=== PATIENT | female | born 1940 | race Caucasian/White ===

== ENCOUNTER 2016-05-23 06:58 | Emergency (ER) | payer MEDICARE, BC ==
[~2016-05-23] VITALS: Ht 165.1 cm; Wt 81.9 kg
[~2016-05-23 06:58] MED LIST: ACET325 PO; CALTTAB10 PO; DILA100C PO; EXCETAB2 PO; LOPR50TA12 PO; LORA-392 PO; METO10TA PO; OCUVTAB4 PO; OXYC5 PO; PHEN100 PO; PHEN60TA PO; SIMV40 PO; WARF5TAB PO
[2016-05-23 07:12] VITALS: BP 111/57; PULSE 83; RESP 16; TEMP 98; O2SAT 97
[2016-05-23] MEDS ORDERED: BETH25TA2 PO (07:41)
[2016-05-23] MEDS ORDERED: PRESCAP6 PO (07:41)
[2016-05-23] MEDS ORDERED: CALCTAB70 PO (07:41)
[2016-05-23] MEDS ORDERED: EXCETAB2 PO (07:41)
[2016-05-23] MEDS ORDERED: LORA-373 PO (07:41)
[2016-05-23] MEDS ORDERED: DILA100C PO (07:41)
[2016-05-23] MEDS ORDERED: WARF-23 PO (07:41)
[2016-05-23] MEDS ORDERED: WARF-18 PO (07:41)
[2016-05-23] MEDS ORDERED: HYDR-3535 PO (07:41)
[2016-05-23] MEDS ORDERED: POTA1TAB4 PO (07:41)
[2016-05-23] MEDS ORDERED: METO-309 PO (07:41)
[2016-05-23] MEDS ORDERED: FURO1TAB60 PO (07:41)
[2016-05-23] MEDS ORDERED: CIPR500T2 PO (07:41)
[2016-05-23] MEDS ORDERED: PHENO60 PO (07:41)
[2016-05-23] MEDS ORDERED: ZOCO40TA PO (07:41)
[2016-05-23] MEDS ORDERED: PANT40TA3 PO (07:42)
--- NOTE | 2016-05-23 08:07 | PD ---
HPI . Left lower leg bruising and swelling and pain Chief Complaint: Musculoskeletal Complaint Time Seen by Provider: 08:00 Travel History International Travel<30 days: No Contact w/Intl Traveler<30days: No Traveled to known affect area: No History of Present Illness HPI Patient presents with a 2 day history of atraumatic left lower leg bruising, swelling and pain. The bruising has become progressively worse as has the pain. She has treated it with ice and Tylenol with no real relief. Pain is exacerbated by walking. Patient reports that she is on warfarin. Patient also reports that she is a newly diagnosed diabetic and has been instructed to check her sugar from time to time. She states that she tried to check it a couple days ago but was unable to get enough blood on the strip to check her glucose level. She is requesting that we check that here today. [id number]: Left calf QUALITY: Aching SEVERITY: 6 out of 10 DURATION: 2 days CONTEXT: Atraumatic MODIFYING FACTORS: On warfarin PFSH Past Medical History Hx Anticoagulant Therapy: Yes (coumadin) Arthritis: Yes Asthma: No Atrial Fibrillation: Yes Autoimmune Disease: No Blood Disorders: No Anxiety: Yes Depression: No Heart Rhythm Problems: Yes (A-FIB) Cancer: No Cardiac Catheterization: No Cardiovascular Problems: Yes (htn on meds, hx of a-fib) High Cholesterol: Yes Chemotherapy: No Chest Pain: No Congestive Heart Failure: Yes COPD: No Cerebrovascular Accident: No Diabetes: Yes (type 2- diet control) Patient Takes Glucophage: No Diminished Hearing: No Deep Vein Thrombosis: No Endocrine: Yes Gastrointestinal Disorders: Yes (RECTAL PROLAPSE REPAIR) GERD: No Glaucoma: No Genitourinary: Yes (CHRONIC UTI'S) Headaches: Yes Hepatitis: No Hiatal Hernia: No Heparin Induced Thrombocytopen: No Hypertension: Yes Immune Disorder: No Implanted Vascular Access Dvce: Yes Kidney Stones: Yes Musculoskeletal: Yes (ARTHRITIS, CHR. BACK PAIN ; OSTEOPORSIS) Neurologic: Yes (CHRONIC RT FOOT NEUROPATHY, MIGRANES, HX SEIZURES) Psychiatric: No Reproductive: No Respiratory: No Migraines: Yes Myocardial Infarction: No Radiation Therapy: No Renal Failure: No Seizures: Yes (started in teenage years last seizure was in 1965) Sickle Cell Disease: No Sleep Apnea: No Thyroid Disease: Yes (PARTIAL THYROID REMOVED FOR CYSTS IN 1953) Ulcer: No Tetanus Vaccination: Unknown Influenza Vaccination: Yes ?: Not Menopausal: Yes : 5 Para: 3 Miscarriage: 2 : 0 Past Surgical History Abdominal Aneurysm Repair: No Abdominal Surgery: No AICD: No Appendectomy: No Arteriovenous Shunt: No Body Medical Devices: PLATE LEFT WRIST; HEART VALVE RING Cardiac Surgery: Yes (MITRAL VALVE REPAIR 2003) Cholecystectomy: No Coronary Artery Bypass Graft: No Ear Surgery: No Endocrine Surgery: Yes (PARTIAL THYROIDECTOMY 1957) Eye Surgery: No Genitourinary Surgery: Yes (BLADDER SUSP. 2011) Gynecologic Surgery: Yes (HYSTERECTOMY ) Hysterectomy: Yes Insulin Pump: No Joint Replacement: Yes (right knee) Neurologic Surgery: No Oral Surgery: Yes (TONSILLECTOMY 1945 ; 07/28 BRONCHOSCOPY) Pacemaker: No Thoracic Surgery: No Tonsillectomy: Yes (1945) Valve Replacement: Yes (2003- MITRAL VALVE) Other Surgery: Yes (BILAT BUNION REMOVAL IN 1996) Family History Family Myocardial Infarction: Yes Social History Alcohol Use: No Tobacco Use: No Substance Use: No Allergies-Medications (Allergen,Severity, Reaction): Coded Allergies: Demerol (Verified Allergy, Severe, NAUSEA AND DIZZY, 05/23/16) INTERMEDIATE REACTION Iodine (Verified Allergy, Severe, HIVES, 05/23/16) HIVES AFTER CARDIAC CATH AND EATING SHRIMP; NAUSEA Percocet (Verified Allergy, Severe, Hallucinations, 05/23/16) Seafood (Unverified Allergy, Intermediate, HIVES; SLEEPY; NAUSEA, 05/23/16) Lyrica (Verified Adverse Reaction, Severe, SEVERE PANIC ATTACK, 05/23/16) Reported Meds & Prescriptions Reported Meds & Active Scripts Active Reported Pantoprazole (Pantoprazole Sodium) 40 Mg Tab 40 Mg PO DAILY K-Tab (Potassium Chloride) 20 Meq Tab 20 Meq PO DAILY PRN Lasix (Furosemide) 40 Mg Tab 40 Mg PO DAILY PRN Bethanechol 25 Mg Tab 12.2 Mg PO QID Lortab (Hydrocodone-Acetaminophen) 10-325 Mg Tab 1 Tab PO Q6H PRN Excedrin Extra Strength (Rdinjwi-Ndmzwphjjjacf-Fljdkpwp) 250-250-65 Mg Tab 2 Tab PO BID PRN Ciprofloxacin (Ciprofloxacin HCl) 500 Mg Tab 500 Mg PO BID PRN Lorazepam 0.5 Mg Tab 0.5 Mg PO DAILY PRN Calcium 600 + D (Calcium Carbonate-Vitamin D) 600-400 Mg-Unit Tab 1 Tab PO BID Preservision-Lutein (Multiple Vitamins W/ Minerals) 1 Cap 1 Cap PO BID Zocor (Simvastatin) 40 Mg Tab 40 Mg PO HS Warfarin 2.5 Mg Tab 2.5 Mg PO Warfarin 5 Mg Tab 5 Mg PO DIRECTED Lopressor (Metoprolol Tartrate) 50 Mg Tab 25 Mg PO BID Phenobarbital 64.8 Mg Tab 64.8 Mg PO BID Dilantin (Phenytoin Extended) 100 Mg Cap 100 Mg PO BID Review of Systems Except as stated in HPI: all other systems reviewed are Neg General / Constitutional: No: Fever, Chills Cardiovascular: No: Chest Pain or Discomfort Respiratory: No: Shortness of Breath Gastrointestinal: No: Nausea, Vomiting Musculoskeletal: Positive: Myalgias, Arthralgias (left knee) Skin: Positive Change in Pigmentation Physical Exam Narrative GENERAL: Older woman who is awake and alert and in no acute distress. SKIN: Warm and dry. She has bruising to the left calf. It is locally tender. HEAD: Atraumatic. Normocephalic. EYES: Pupils equal and round. ENT: No nasal bleeding or discharge. Mucous membranes pink and moist. NECK: Trachea midline. Neck is supple. CARDIOVASCULAR: Regular rate and rhythm. RESPIRATORY: No accessory muscle use. GASTROINTESTINAL: Abdomen soft, non-tender, nondistended. MUSCULOSKELETAL: No obvious deformities. No edema. Tender in the left calf. She also has crepitus and tenderness in the left knee but no swelling or deformity. NEUROLOGICAL: Awake and alert. No obvious cranial nerve deficits. Motor grossly within normal limits. Normal speech. PSYCHIATRIC: Appropriate mood and affect; insight and judgment normal. Data Data Last Documented VS Vital Signs Date Time Temp Pulse Resp B/P Pulse Ox O2 Delivery O2 Flow Rate FiO2 05/23/16 10:01 81 17 133/73 95 Room Air 05/23/16 07:12 98.0 Orders Knee, Complete (4vws) (05/23/16 07:48) Us Leg Venous Doppler (05/23/16 07:48) Prothrombin Time / Inr (Pt) (05/23/16 08:01) Basic Metabolic Panel (Bmp) (05/23/16 08:01) ^ Roberto Bandage (05/23/16 09:58) Labs Laboratory Tests Test 05/23/16 09:39 Prothrombin Time 25.9 SEC Prothromb Time International 2.3 RATIO Ratio Sodium Level 143 MEQ/L Potassium Level 3.9 MEQ/L Chloride Level 107 MEQ/L Carbon Dioxide Level 25.0 MEQ/L Anion Gap 11 MEQ/L Blood Urea Nitrogen 24 MG/DL Creatinine 0.68 MG/DL Estimat Glomerular Filtration 84 ML/MIN Rate Random Glucose 115 MG/DL Calcium Level 8.8 MG/DL MDM Medical Decision Making Medical Screen Exam Complete: Yes Emergency Medical Condition: Yes Differential Diagnosis Differential diagnosis of joint pain includes but is not limited to arthritis, gout, sprain/strain, fracture, dislocation Differential diagnosis of leg pain includes but is not limited to lumbar radiculopathy, arthritis, myalgias, DVT. Narrative Course Patient presents for evaluation of atraumatic left calf pain with associated bruising and swelling. She is on warfarin. She also has arthritis in her left knee. Last Impressions Lower Extremity Ultrasound 05/23/16747 Signed Impressions: Service Date/Time: Monday, May 23, 2016 08:20 - CONCLUSION: No DVT of the left lower extremity. Popliteal cyst. Timoteo Reeves MD Knee X-Ray 05/23/16747 Signed Impressions: Service Date/Time: Monday, May 23, 2016 08:09 - CONCLUSION: Small joint effusion. Moderate patellofemoral degenerative arthropathy. No evidence of acute fracture or subluxation. Michael Barrera MD The plain films were independently viewed by me. INR is 2.3 BMP Diagram 05/23/16 09:39 Diagnosis Primary Impression: Zhou's cyst of knee Qualified Code: M71.22 - Zhou's cyst of knee, left Additional Impression: Hematoma, non-traumatic Additional Instructions: No change in your warfarin Disposition: 01 DISCHARGE HOME Condition: Stable Rosa Narvaez MD May 23, 2016 08:07
--- NOTE | 2016-05-23 08:34 | RADHPO ---
EXAM DATE/TIME: 05/23/2016 08:09 [facility] COMPARISON: No previous studies available for comparison. INDICATIONS : Left knee pain with no known injury. MEDICAL HISTORY : None. SURGICAL HISTORY : None. ENCOUNTER: Initial ACUITY: 3 days PAIN SCORE: 4/10 LOCATION: Left entire knee FINDINGS: Four view examination of the left knee demonstrates no evidence of fracture or dislocation. Moderate arthropathy is identified of the patellofemoral joint. The patella demonstrates remodeling of the art iculating surface with subchondral sclerosis and marginal spurring. Medial and lateral joint compartm ents are well-maintained. Bony mineralization is normal. Small joint effusion may be present. CONCLUSION: Small joint effusion. Moderate patellofemoral degenerative arthropathy. No evidence of acute fracture or subluxation. Michael Barrera MD on May 23, 2016 at 8:32 Board Certified Radiologist. This report was verified electronically.
--- NOTE | 2016-05-23 09:07 | RADHPO ---
EXAM DATE/TIME: 05/23/2016 08:20 [facility] COMPARISON: No previous studies available for comparison. INDICATIONS : Left leg pain. MEDICAL HISTORY : Hypertension. Neuropathy. Seizures. Migraine. Congestive heart failure. Atrial fibrillation. Ant icoagulant therapy. Dyspnea. Diabetes. SURGICAL HISTORY : Tonsillectomy. Hysterectomy. Partial thyroidectomy. Brochoscopy. Mitral valve repair. Rectal prolap se repair. Orthopedic surgery, right wrist and ankle. Right knee replacement. ENCOUNTER: Initial ACUITY: 1 day PAIN SCORE: 3/10 LOCATION: Left leg. TECHNIQUE: Venous ultrasound of the leg was performed from the inguinal ligament to the proximal calf. Real-curt e, color Doppler and spectral tracing, compression and augmentation techniques were used. FINDINGS: There is normal compressibility of the deep venous system from the inguinal region to the proximal ca lf. No echogenic clot is seen in the lumen of the common femoral, femoral, popliteal, and posterior tibial veins. There is a normal response of the venous system to proximal and distal augmentation an d respiration. 6.8 x 1.8 x 3.5 cm fluid collection seen behind the knee. CONCLUSION: No DVT of the left lower extremity. Popliteal cyst. Timoteo Reeves MD on May 23, 2016 at 9:05 Board Certified Radiologist. This report was verified electronically.
[2016-05-23 09:54] LABS: POTASSIUM 3.9 MEQ/L (3.5-5.1)
[2016-05-23 09:56] LABS: INTERNATIONAL NORMALIZED RATIO 2.3 RATIO; PROTHROMBIN TIME - PATIENT 25.9 SEC (9.8-11.6)
[2016-05-23 10:01] VITALS: BP 133/73; PULSE 81; RESP 17; O2SAT 95
== END 2016-05-23 10:20 | disposition home or self-care (01) ==
LOC: PHED 06:58
DX: M71.22 Synovial cyst of popliteal space [Baker], left knee (principal); M79.81 Nontraumatic hematoma of soft tissue; I48.91 Unspecified atrial fibrillation; E11.9 Type 2 diabetes mellitus without complications; E78.00 Pure hypercholesterolemia, unspecified; I50.9 Heart failure, unspecified; I10 Essential (primary) hypertension; E07.9 Disorder of thyroid, unspecified; Z79.01 Long term (current) use of anticoagulants
CPT/HCPCS: 73564; 80048; 85610; 93971

== ENCOUNTER 2016-05-26 07:31 | Emergency (ER) | payer MEDICARE, BC ==
[~2016-05-26] VITALS: Ht 165.1 cm; Wt 82.0 kg
[~2016-05-26 07:31] MED LIST changes: -ACET325 PO; +BETH25TA2 PO; +CALCTAB70 PO; -CALTTAB10 PO; +CIPR500T2 PO; +FURO1TAB60 PO; +HYDR-3535 PO; -LOPR50TA12 PO; +LORA-373 PO; -LORA-392 PO; +METO-309 PO; -METO10TA PO; -OCUVTAB4 PO; -OXYC5 PO; +PANT40TA3 PO; -PHEN100 PO; -PHEN60TA PO; +PHENO60 PO; +POTA1TAB4 PO; +PRESCAP6 PO; -SIMV40 PO; +WARF-18 PO; +WARF-23 PO; -WARF5TAB PO; +ZOCO40TA PO
[2016-05-26 07:38] VITALS: BP 118/68; PULSE 87; RESP 14; TEMP 98.1; O2SAT 97
[2016-05-26] MEDS ORDERED: PERC5TAB12 PO (08:07)
--- NOTE | 2016-05-26 08:12 | PD ---
HPI . Increased bruising, swelling and pain of the left calf Chief Complaint: Musculoskeletal Complaint Time Seen by Provider: 07:58 Travel History International Travel<30 days: No Contact w/Intl Traveler<30days: No Traveled to known affect area: No History of Present Illness HPI Patient presents complaining of increased bruising, swelling and pain in her left calf. Patient was seen here 2 days ago for same. She had an ultrasound which showed a Zhou cyst but no acute DVT. She is on Coumadin. Her INR was therapeutic. She was discharged with instructions to keep it wrapped and elevated. She states that she has been doing this but that the pain and swelling and bruising is getting worse rather than better. [id number]: Left leg QUALITY: Aching DURATION: 2+ days TIMING: Worsening CONTEXT: Patient on Coumadin MODIFYING FACTORS: Exacerbated by walking PFSH Past Medical History Hx Anticoagulant Therapy: Yes (coumadin) Arthritis: Yes Asthma: No Atrial Fibrillation: Yes Autoimmune Disease: No Blood Disorders: No Anxiety: Yes Depression: No Heart Rhythm Problems: Yes (A-FIB) Cancer: No Cardiac Catheterization: No Cardiovascular Problems: Yes (htn on meds, hx of a-fib) High Cholesterol: Yes Chemotherapy: No Chest Pain: No Congestive Heart Failure: Yes COPD: No Cerebrovascular Accident: No Diabetes: Yes (type 2- diet control) Diminished Hearing: No Deep Vein Thrombosis: No Endocrine: Yes Gastrointestinal Disorders: Yes (RECTAL PROLAPSE REPAIR) GERD: No Glaucoma: No Genitourinary: Yes (CHRONIC UTI'S) Headaches: Yes Hepatitis: No Hiatal Hernia: No Heparin Induced Thrombocytopen: No Hypertension: Yes Immune Disorder: No Implanted Vascular Access Dvce: Yes Kidney Stones: Yes Musculoskeletal: Yes (ARTHRITIS, CHR. BACK PAIN ; OSTEOPORSIS) Neurologic: Yes (CHRONIC RT FOOT NEUROPATHY, MIGRANES, HX SEIZURES) Psychiatric: No Reproductive: No Respiratory: No Migraines: Yes Myocardial Infarction: No Radiation Therapy: No Renal Failure: No Seizures: Yes (started in teenage years last seizure was in 1965) Sickle Cell Disease: No Sleep Apnea: No Thyroid Disease: Yes (PARTIAL THYROID REMOVED FOR CYSTS IN 1953) Ulcer: No ?: Not Menopausal: Yes : 5 Para: 3 Miscarriage: 2 : 0 Past Surgical History Abdominal Aneurysm Repair: No Abdominal Surgery: No AICD: No Appendectomy: No Arteriovenous Shunt: No Body Medical Devices: PLATE LEFT WRIST; HEART VALVE RING Cardiac Surgery: Yes (MITRAL VALVE REPAIR 2003) Cholecystectomy: No Coronary Artery Bypass Graft: No Ear Surgery: No Endocrine Surgery: Yes (PARTIAL THYROIDECTOMY 1957) Eye Surgery: No Genitourinary Surgery: Yes (BLADDER SUSP. 2011) Gynecologic Surgery: Yes (HYSTERECTOMY ') Hysterectomy: Yes Insulin Pump: No Joint Replacement: Yes (right knee) Neurologic Surgery: No Oral Surgery: Yes (TONSILLECTOMY 1945 ; 07/28 BRONCHOSCOPY) Pacemaker: No Thoracic Surgery: No Tonsillectomy: Yes (1945) Valve Replacement: Yes (2003- MITRAL VALVE) Other Surgery: Yes (BILAT BUNION REMOVAL IN 1996) Social History Alcohol Use: No Tobacco Use: No Substance Use: No Allergies-Medications (Allergen,Severity, Reaction): Coded Allergies: Demerol (Verified Allergy, Severe, NAUSEA AND DIZZY, 05/26/16) INTERMEDIATE REACTION Iodine (Verified Allergy, Severe, HIVES, 05/26/16) HIVES AFTER CARDIAC CATH AND EATING SHRIMP; NAUSEA Percocet (Verified Allergy, Severe, Hallucinations, 05/26/16) Seafood (Unverified Allergy, Intermediate, HIVES; SLEEPY; NAUSEA, 05/26/16) Lyrica (Verified Adverse Reaction, Severe, SEVERE PANIC ATTACK, 05/26/16) Reported Meds & Prescriptions Reported Meds & Active Scripts Active Reported Pantoprazole (Pantoprazole Sodium) 40 Mg Tab 40 Mg PO DAILY K-Tab (Potassium Chloride) 20 Meq Tab 20 Meq PO DAILY PRN Lasix (Furosemide) 40 Mg Tab 40 Mg PO DAILY PRN Bethanechol 25 Mg Tab 12.2 Mg PO QID Lortab (Hydrocodone-Acetaminophen) 10-325 Mg Tab 1 Tab PO Q6H PRN Excedrin Extra Strength (Bbkvajc-Ovqehugapfvej-Otwwqbon) 250-250-65 Mg Tab 2 Tab PO BID PRN Ciprofloxacin (Ciprofloxacin HCl) 500 Mg Tab 500 Mg PO BID PRN Lorazepam 0.5 Mg Tab 0.5 Mg PO DAILY PRN Calcium 600 + D (Calcium Carbonate-Vitamin D) 600-400 Mg-Unit Tab 1 Tab PO BID Preservision-Lutein (Multiple Vitamins W/ Minerals) 1 Cap 1 Cap PO BID Zocor (Simvastatin) 40 Mg Tab 40 Mg PO HS Warfarin 2.5 Mg Tab 2.5 Mg PO take on Mon,Wed, Thu Warfarin 5 Mg Tab 5 Mg PO DIRECTED Sun,Tue, Thur,Fabian, Ruth Lopressor (Metoprolol Tartrate) 50 Mg Tab 25 Mg PO BID Phenobarbital 64.8 Mg Tab 64.8 Mg PO BID Dilantin (Phenytoin Extended) 100 Mg Cap 100 Mg PO BID Review of Systems Except as stated in HPI: all other systems reviewed are Neg General / Constitutional: No: Fever, Chills Musculoskeletal: Positive: Pain (left calf) Skin: Positive Change in Pigmentation Physical Exam Narrative GENERAL: Very concerned patient and . SKIN: Warm and dry. Bruising of the left calf extending into the left ankle and foot. It is tender but soft. HEAD: Atraumatic. Normocephalic. EYES: Pupils equal and round. ENT: No nasal bleeding or discharge. Mucous membranes pink and moist. NECK: Trachea midline. CARDIOVASCULAR: Regular rate and rhythm. RESPIRATORY: No accessory muscle use. MUSCULOSKELETAL: No obvious deformities. Swelling and tenderness of the left calf. NEUROLOGICAL: Awake and alert. No obvious cranial nerve deficits. Motor grossly within normal limits. Normal speech. PSYCHIATRIC: Appropriate mood and affect; insight and judgment normal. Data Data Last Documented VS Vital Signs Date Time Temp Pulse Resp B/P Pulse Ox O2 Delivery O2 Flow Rate FiO2 05/26/16 07:38 98.1 87 14 118/68 97 Room Air MDM Medical Decision Making Medical Screen Exam Complete: Yes Emergency Medical Condition: Yes Differential Diagnosis Differential diagnosis of leg pain includes but is not limited to lumbar radiculopathy, arthritis, myalgias, DVT. Narrative Course Patient presents for evaluation of worsening bruising and swelling of her leg. She was seen here 2 days ago for same. She had an ultrasound negative for DVT but positive for Zhou cyst. The patient is on Coumadin. The appearance of her leg is as would be expected. Diagnosis Primary Impression: Hematoma of left lower extremity Qualified Code: S80.12XD - Hematoma of left lower extremity, subsequent encounter Additional Impressions: Zhou's cyst of knee Qualified Code: M71.22 - Zhou's cyst of knee, left Warfarin anticoagulation Additional Instructions: Rest Ice Compression Elevation Med/Other Pt SpecificInfo: Prescription(s) given Scripts Oxycodone-Acetaminophen (Percocet)5-325 mg Tab1 Tab PO Q4H PRN (PAIN) #12 TAB Ref 0 Prov:Rosa Narvaez MD 05/26/16 Disposition: 01 DISCHARGE HOME Condition: Stable Rosa Narvaez MD May 26, 2016 08:11
== END 2016-05-26 08:23 | disposition home or self-care (01) ==
LOC: PHED 07:31
DX: S80.12XA Contusion of left lower leg, initial encounter (principal); M71.22 Synovial cyst of popliteal space [Baker], left knee; I48.91 Unspecified atrial fibrillation; E78.00 Pure hypercholesterolemia, unspecified; I50.9 Heart failure, unspecified; E11.9 Type 2 diabetes mellitus without complications; I10 Essential (primary) hypertension; X58.XXXA Exposure to other specified factors, initial encounter; Z96.651 Presence of right artificial knee joint; Z87.442 Personal history of urinary calculi
CPT/HCPCS: 99283

== ENCOUNTER → 2016-06-10 | Outpatient (CLI) | payer MEDICARE, BC ==
[~2016-06-10] MED LIST changes: +PERC5TAB12 PO
[2016-06-10 10:24] LABS: AUTOMATED NEUTROPHIL # 3.3 TH/MM3 (1.8-7.7); BASOPHIL % 0.6 % (0.0-2.0); EOSINOPHIL # 0.1 TH/MM3 (0-0.4); EOSINOPHIL % 1.8 % (0.0-4.0); HEMATOCRIT 30.6 % (35.0-46.0); HEMO FLAGS DIFF FINAL; LYMPH % 17.4 % (9.0-44.0); LYMPHOCYTE # 0.8 TH/MM3 (1.0-4.8); MEAN CELL VOLUME 81.9 FL (80.0-100.0); MEAN CORPUSCULAR HEMOGLOBIN 25.8 PG (27.0-34.0); MEAN CORPUSCULAR HGB CONC 31.5 % (32.0-36.0); MONO % 11.6 % (0.0-8.0); NEUT % 68.6 % (16.0-70.0); PLATELET COUNT 352 TH/MM3 (150-450); RED BLOOD COUNT 3.73 MIL/MM3 (4.00-5.30); RED CELL DISTRIBUTION WIDTH 20.2 % (11.6-17.2); WHITE BLOOD COUNT 4.8 TH/MM3 (4.0-11.0)
[2016-06-10 10:51] LABS: MICRO ALBUMIN RANDOM URINE RAW 13.5 MG/L (0.0-30.0)
[2016-06-10 10:51] LABS: ALKALINE PHOSPHATASE 122 U/L (45-117); ALT (GPT) 9 U/L (10-53); ANION GAP 8 MEQ/L (5-15); AST (GOT) 8 U/L (15-37); BICARBONATE 29.3 MEQ/L (21.0-32.0); BLOOD UREA NITROGEN 16 MG/DL (7-18); CHLORIDE 104 MEQ/L (98-107); GLOMERULAR FILTRATION RATE 101 ML/MIN (>89); GLUCOSE,FASTING 117 MG/DL (74-99); HDL CHOLESTEROL 93.2 MG/DL (40.0-60.0); LDL CHOLESTEROL 81 MG/DL (0-99); PHENOBARBITAL 42.8 MCG/ML (15.0-40.0); POTASSIUM 3.9 MEQ/L (3.5-5.1); SODIUM (NA) 141 MEQ/L (136-145); TOTAL BILIRUBIN ADULT 0.2 MG/DL (0.2-1.0)
[2016-06-10 16:24] LABS: HEMOGLOBIN Ao 83.5 %; HEMOGLOBIN LA1C 2.4 %; HEMOGLOBIN P3 4.6 %
== END ==
LOC: CLAB 09:53
PROVIDERS: ATTEND Family Medicine
DX: I48.91 Unspecified atrial fibrillation (principal); I50.9 Heart failure, unspecified; E11.9 Type 2 diabetes mellitus without complications; G40.909 Epilepsy, unspecified, not intractable, without status epilepticus; E78.5 Hyperlipidemia, unspecified; R78.5 Finding of other psychotropic drug in blood; R56.9 Unspecified convulsions; I10 Essential (primary) hypertension; Z79.01 Long term (current) use of anticoagulants; Z12.39 Encounter for other screening for malignant neoplasm of breast
CPT/HCPCS: 36415; 80053; 80061; 80184; 80185; 82043; 83036; 85025

== ENCOUNTER → 2016-07-01 | Outpatient (CLI) | payer MEDICARE, BC | LOC: CLAB 11:36 | PROVIDERS: ATTEND Family Medicine | DX: R56.9 Unspecified convulsions (principal) | CPT/HCPCS: 36415; 80184; 80185 ==

== ENCOUNTER 2016-09-06 09:31 | Observation (INO) | payer MEDICARE, BC ==
[2016-09-06] VITALS (8 sets, daily range): BP systolic 109–132; BP diastolic 55–74; PULSE 72–99; RESP 14–20; TEMP 97.2–98.7; O2SAT 91–97
[~2016-09-06] VITALS: Ht 165.1 cm; Wt 78.2 kg
--- NOTE | 2016-09-06 09:56 | PD ---
HPI Chief Complaint: GI Complaint Time Seen by Provider: 09:40 Travel History International Travel<30 days: No Contact w/Intl Traveler<30days: No Traveled to known affect area: No History of Present Illness HPI C/O NAUSEA AND EPIG BURNING SENSATION THAT HAS BEEN BOTHERING HER FOR NEARLY 24 HRS STRAIGHT WITHOUT IMPROVEMENT, HAS H/O GASTRIC ULCERS, PT DENIES V/D/CP/ AT THIS POINT... 06/23, nonradiating, without alleviating/aggravating factors PFSH Past Medical History Hx Anticoagulant Therapy: Yes (Warfarin) Arthritis: Yes Asthma: No Atrial Fibrillation: Yes Autoimmune Disease: No Blood Disorders: No Anxiety: Yes Depression: No Heart Rhythm Problems: Yes (A-FIB) Cancer: No Cardiac Catheterization: No Cardiovascular Problems: Yes (Cardiomegaly, CHF, mitral repair, AF) High Cholesterol: Yes Chemotherapy: No Chest Pain: No Congestive Heart Failure: Yes COPD: No Cerebrovascular Accident: No Diabetes: Yes (type 2- diet control) Patient Takes Glucophage: No Diminished Hearing: No Deep Vein Thrombosis: No Endocrine: Yes Gastrointestinal Disorders: Yes (RECTAL PROLAPSE REPAIR) GERD: No Glaucoma: No Genitourinary: Yes (CHRONIC UTI'S) Headaches: Yes Hepatitis: No Hiatal Hernia: No Heparin Induced Thrombocytopen: No Hypertension: Yes Immune Disorder: No Implanted Vascular Access Dvce: Yes Kidney Stones: Yes Musculoskeletal: Yes (ARTHRITIS, CHR. BACK PAIN ; OSTEOPORSIS) Neurologic: Yes (CHRONIC RT FOOT NEUROPATHY, MIGRANES, HX SEIZURES) Psychiatric: No Reproductive: No Respiratory: No Migraines: Yes Myocardial Infarction: No Radiation Therapy: No Renal Failure: No Seizures: Yes (started in teenage years last seizure was in 1964) Sickle Cell Disease: No Sleep Apnea: No Thyroid Disease: Yes (PARTIAL THYROID REMOVED FOR CYSTS IN 1952) Ulcer: No ?: Not Menopausal: Yes : 5 Para: 3 Miscarriage: 2 : 0 Past Surgical History Abdominal Aneurysm Repair: No Abdominal Surgery: No AICD: No Appendectomy: No Arteriovenous Shunt: No Body Medical Devices: PLATE LEFT WRIST; HEART VALVE RING Cardiac Surgery: Yes (MITRAL VALVE REPAIR 2003) Cholecystectomy: No Coronary Artery Bypass Graft: No Ear Surgery: No Endocrine Surgery: Yes (PARTIAL THYROIDECTOMY 1957) Eye Surgery: No Genitourinary Surgery: Yes (BLADDER SUSP. 2011) Gynecologic Surgery: Yes (HYSTERECTOMY ) Hysterectomy: Yes Insulin Pump: No Joint Replacement: Yes (right knee) Neurologic Surgery: No Oral Surgery: Yes (TONSILLECTOMY 1945 ; 07/28 BRONCHOSCOPY) Pacemaker: No Thoracic Surgery: No Tonsillectomy: Yes (1945) Valve Replacement: Yes (2003- MITRAL VALVE) Other Surgery: Yes (BILAT BUNION REMOVAL IN 1996) Family History Family Myocardial Infarction: Yes Social History Alcohol Use: No Tobacco Use: No Substance Use: No Allergies-Medications (Allergen,Severity, Reaction): Coded Allergies: Demerol (Verified Allergy, Severe, NAUSEA AND DIZZY, 09/06/16) INTERMEDIATE REACTION Iodine (Verified Allergy, Severe, HIVES, 09/06/16) HIVES AFTER CARDIAC CATH AND EATING SHRIMP; NAUSEA Percocet (Verified Allergy, Severe, Hallucinations, 09/06/16) Seafood (Unverified Allergy, Intermediate, HIVES; SLEEPY; NAUSEA, 09/06/16) Lyrica (Verified Adverse Reaction, Severe, SEVERE PANIC ATTACK, 09/06/16) Reported Meds & Prescriptions Reported Meds & Active Scripts Active Reported K-Tab (Potassium Chloride) 20 Meq Tab 20 Meq PO DAILY PRN Lasix (Furosemide) 40 Mg Tab 40 Mg PO DAILY PRN Lortab (Hydrocodone-Acetaminophen) 10-325 Mg Tab 1 Tab PO Q6H PRN Lorazepam 0.5 Mg Tab 0.5 Mg PO DAILY PRN Preservision-Lutein (Multiple Vitamins W/ Minerals) 1 Cap 1 Cap PO BID Zocor (Simvastatin) 40 Mg Tab 40 Mg PO HS Warfarin 2.5 Mg Tab 2.5 Mg PO take on Mon,Wed, Thu Warfarin 5 Mg Tab 5 Mg PO DIRECTED Sun,Tue, Thur,Sat, Sun Lopressor (Metoprolol Tartrate) 50 Mg Tab 25 Mg PO BID Phenobarbital 64.8 Mg Tab 64.8 Mg PO BID Dilantin (Phenytoin Extended) 100 Mg Cap 100 Mg PO BID Review of Systems Except as stated in HPI: all other systems reviewed are Neg Gastrointestinal: Positive: Nausea, Abdominal Pain, Indigestion Physical Exam Narrative GENERAL: SKIN: Warm and dry. HEAD: Atraumatic. Normocephalic. EYES: Pupils equal and round. No scleral icterus. No injection or drainage. ENT: No nasal bleeding or discharge. Mucous membranes pink and moist. NECK: Trachea midline. No JVD. CARDIOVASCULAR: Regular rate and rhythm. RESPIRATORY: No accessory muscle use. Clear to auscultation. Breath sounds equal bilaterally. GASTROINTESTINAL: Abdomen soft, non-tender, nondistended. VERY MILD EPIG DISCOMFORT NOTED WITH DEEP PALPATION BUT NOT WITH PERCUSSION MUSCULOSKELETAL: Extremities without clubbing, cyanosis, or edema. No obvious deformities. NEUROLOGICAL: Awake and alert. No obvious cranial nerve deficits. Motor grossly within normal limits. Five out of 5 muscle strength in the arms and legs. Normal speech. PSYCHIATRIC: Appropriate mood and affect; insight and judgment normal. Data Data Last Documented VS Orders Complete Blood Count With Diff (09/06/16 09:51) Comprehensive Metabolic Panel (09/06/16 09:51) Lipase (09/06/16 09:51) Prothrombin Time / Inr (Pt) (09/06/16 09:51) Act Partial Throm Time (Ptt) (09/06/16 09:51) Abdomen, Flat & Upright (09/06/16 ) Iv Access Insert/Monitor (09/06/16 09:51) Ecg Monitoring (09/06/16 09:51) Oximetry (09/06/16 09:51) NPO (09/06/16 09:51) Ondansetron Inj (Zofran Inj) (09/06/16 10:00) Pantoprazole Inj (Protonix Inj) (09/06/16 10:00) Electrocardiogram (09/06/16 09:51) Al-Mag Hy-Si 40-40-4 Mg/Ml Liq (Mag-Al P (09/06/16 10:00) Lidocaine 2% Viscous (Xylocaine 2% Visco (09/06/16 10:00) Ckmb (Isoenzyme) Profile (09/06/16 11:44) Troponin I (09/06/16 11:44) Admit Order (Ed Use Only) (09/06/16 11:45) Labs MDM Medical Decision Making Medical Screen Exam Complete: Yes Emergency Medical Condition: Yes Medical Record Reviewed: Yes Interpretation(s) NSR 80, WITH PAC'S, OLD INFERIOR Q WAVES, INVERTED T WAVES V2-V5 Differential Diagnosis ULCER V PERF V BLEEDING ULCERATION V ATYPICAL ME V SBO Narrative Course patient evaluated, based on ekg findings age and other risk factors it would be prudent to admit pt for observation on a cp r/o mi Diagnosis Primary Impression: atypical cp r/o mi Admitting Information Admitting Physician Requests: Observation Scripts Pantoprazole 40 Mg Tab40 Mg PO DAILY #30 TAB Ref 3 Prov:Navneet Correia MD 09/07/16 Lukas García MD Sep 06, 2016 09:56 Mean Corpuscular Hemoglobin 31.2 % Concent Red Cell Distribution Width 19.6 % Platelet Count 219 TH/MM3 Mean Platelet Volume 8.8 FL Neutrophils (%) (Auto) 57.3 % Lymphocytes (%) (Auto) 27.1 % Monocytes (%) (Auto) 13.7 % Eosinophils (%) (Auto) 1.1 % Basophils (%) (Auto) 0.8 % Neutrophils # (Auto) 2.6 TH/MM3 Lymphocytes # (Auto) 1.2 TH/MM3 Monocytes # (Auto) 0.6 TH/MM3 Eosinophils # (Auto) 0.0 TH/MM3 Basophils # (Auto) 0.0 TH/MM3 CBC Comment AUTO DIFF Prothrombin Time 30.1 SEC Prothromb Time International 2.6 RATIO Ratio Activated Partial 35.8 SEC Thromboplast Time Sodium Level 143 MEQ/L Potassium Level 3.8 MEQ/L Chloride Level 106 MEQ/L Carbon Dioxide Level 27.1 MEQ/L Anion Gap 10 MEQ/L Blood Urea Nitrogen 11 MG/DL Creatinine 0.64 MG/DL Estimat Glomerular Filtration 90 ML/MIN Rate Random Glucose 112 MG/DL Calcium Level 9.6 MG/DL Total Bilirubin 0.4 MG/DL Aspartate Amino Transf 13 U/L (AST/SGOT) Alanine Aminotransferase 11 U/L (ALT/SGPT) Alkaline Phosphatase 97 U/L Total Protein 7.0 GM/DL Albumin 3.8 GM/DL Lipase 296 U/L [facility] Medical Decision Making Medical Screen Exam Complete: Yes Emergency Medical Condition: Yes Medical Record Reviewed: Yes Interpretation(s) NSR 80, WITH PAC'S, OLD INFERIOR Q WAVES, INVERTED T WAVES V2-V5 Differential Diagnosis ULCER V PERF V BLEEDING ULCERATION V ATYPICAL ME V SBO Lukas García MD Sep 06, 2016 09:56
[2016-09-06] MEDS ORDERED: PANTOPRAZOLE SODIUM 40 MG VIAL IVP ONE (10:00)
[2016-09-06] MEDS ORDERED: SODIUM CHLORIDE 0.9% FLUSH 10 ML FLUSH IV FLUSH PRN ×2 (10:00→11:45)
[2016-09-06] MEDS ORDERED: ALUMINUM/MAGNESIUM/SIMETH 30 ML CUP PO ONE (10:00)
[2016-09-06] MEDS ORDERED: ONDANSETRON HCL 4 MG/2 ML VIAL IVP ONE (10:00)
[2016-09-06] MEDS ORDERED: LIDOCAINE VISCOUS 2% SOLN 15 ML UDC PO ONE (10:00)
[2016-09-06 10:10] LABS: AUTOMATED NEUTROPHIL # 2.6 TH/MM3 (1.8-7.7); BASOPHIL % 0.8 % (0.0-2.0); EOSINOPHIL % 1.1 % (0.0-4.0); HEMATOCRIT 34.8 % (35.0-46.0); LYMPH % 27.1 % (9.0-44.0); LYMPHOCYTE # 1.2 TH/MM3 (1.0-4.8); MEAN CELL VOLUME 78.4 FL (80.0-100.0); MEAN CORPUSCULAR HEMOGLOBIN 24.5 PG (27.0-34.0); MEAN CORPUSCULAR HGB CONC 31.2 % (32.0-36.0); MONO % 13.7 % (0.0-8.0); NEUT % 57.3 % (16.0-70.0); PLATELET COUNT 219 TH/MM3 (150-450); RED BLOOD COUNT 4.43 MIL/MM3 (4.00-5.30); RED CELL DISTRIBUTION WIDTH 19.6 % (11.6-17.2); WHITE BLOOD COUNT 4.4 TH/MM3 (4.0-11.0)
[2016-09-06 10:16] LABS: CHLORIDE 106 MEQ/L (98-107); POTASSIUM 3.8 MEQ/L (3.5-5.1); SODIUM (NA) 143 MEQ/L (136-145)
[2016-09-06 10:21] LABS: APTT (PATIENT) 35.8 SEC (24.3-30.1); INTERNATIONAL NORMALIZED RATIO 2.6 RATIO; PROTHROMBIN TIME - PATIENT 30.1 SEC (9.8-11.6)
[2016-09-06 10:22] LABS: ANION GAP 10 MEQ/L (5-15); BICARBONATE 27.1 MEQ/L (21.0-32.0); BLOOD UREA NITROGEN 11 MG/DL (7-18)
[2016-09-06 10:24] LABS: ALT (GPT) 11 U/L (10-53); HEMO FLAGS AUTO DIFF
[2016-09-06 10:25] LABS: AST (GOT) 13 U/L (15-37); GLOMERULAR FILTRATION RATE 90 ML/MIN (>89)
[2016-09-06 10:26] LABS: TOTAL BILIRUBIN ADULT 0.4 MG/DL (0.2-1.0)
[2016-09-06 10:27] LABS: ALKALINE PHOSPHATASE 97 U/L (45-117)
--- NOTE | 2016-09-06 10:37 | RADRPT ---
EXAM DATE/TIME: 09/06/2016 10:02 [place] COMPARISON: No previous studies available for comparison. INDICATIONS : Nausea, abdomen pain MEDICAL HISTORY : None. SURGICAL HISTORY : None. ENCOUNTER: Initial ACUITY: 4 - 6 days PAIN SCORE: 7/10 LOCATION: Bilateral abdomen FINDINGS: Supine and upright views of the abdomen were performed. The abdominal bowel gas pattern is normal. T here is stool throughout the colon. No air fluid levels are seen. There is a 5 mm calcification overl mary the lower pole of the left kidney. No definite calcifications overlying the right kidney.. There is some platelike infiltrates in both lung bases.. No evidence of free intraperitoneal gas. Bony de generative changes of the lumbar spine and pelvis. CONCLUSION: Bowel gas pattern within normal limits. Possible left renal calculus Scotty Khoury MD on September 06, 2016 at 10:33 Board Certified Radiologist. This report was verified electronically.
[2016-09-06 10:50] LABS: SCAN/DIFF AUTO DIFF CONFIRMED
[2016-09-06] MEDS ORDERED: NITROGLYCERIN 0.4 MG SL 25 TABS/BTL SL PRN (11:45)
[2016-09-06] MEDS ORDERED: MORPHINE SULFATE 4 MG/ML INJ IV PRN (11:45)
[2016-09-06] MEDS ORDERED: ALPRAZolam 0.25 MG TAB PO PRN (11:45)
[2016-09-06] MEDS ORDERED: ACETAMINOPHEN 500 MG CPLT PO PRN (11:45)
--- NOTE | 2016-09-06 12:09 | HHI.HP ---
[facility] Stephane Finnegan MD Admission Diagnosis GENERAL WEAKNESS R/O HI Diagnoses: (1) Nausea Diagnosis: Principal Chief Complaint: Nausea Travel History International Travel<30 Days: No Contact w/Intl Traveler <30 Da: No Traveled to Known Affected Are: No History of Present Illness Written by Kalyan Leal, acting as scribe for Dr. Correia on 09/06/16 at 12: 41. 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 Patient indicates that 4 days ago she started developing nausea without any vomiting, chest pain, shortness of breath, dyspnea, hematochezia, melena, abdominal pain. Patient indicates that she is feeling before in the past in which she had endoscopy done by Dr. Torres and was diagnosed with irritated ulcer and was started on medication for her stomach. Patient had been doing well and in April she decided to stop taking the medication because of the cost and she was doing better. However she started the same discomfort 4 days ago, she went to pharmacy and fill the prescription and start taking the medication. Because the medication did not help with her persistent nausea she came to the hospital for evaluation can she is concerned that with her nausea, possible irritated ulcer, she is on Coumadin that she may have problems with a bleeding ulcer. Patient had workup done emergency department and had EKG performed which did show Q waves in inferior leads as well as T-wave abnormalities in V2V6. Patient states that ER physician contacted her porcelain mixer Dr. Burris, who recommended the patient should stay overnight for observation. At the present time patient is still having the nausea, but no vomiting. Review of Systems Constitutional: DENIES: Diaphoretic episodes, Fatigue, Fever, Weight gain, Weight loss, Chills, Dizziness, Change in appetite, Night Sweats Endocrine: DENIES: Abnorml menstrual pattern, Heat/cold intolerance, Polydipsia , Polyuria, Polyphagia Eyes: DENIES: Blurred vision, Diplopia, Eye inflammation, Eye pain, Vision loss , Double Vision Ears, nose, mouth, throat: DENIES: Hearing loss, Vertigo, Nasal discharge, Throat pain, Hoarseness, Running Nose, Sinus Pain Respiratory: DENIES: Apneas, Cough, Snoring, Wheezing, Hemoptysis, Sputum production, Shortness of breath Cardiovascular: DENIES: Chest pain, Palpitations, Syncope, Dyspnea on Exertion , PND, Lower Extremity Edema, Orthopnea, Claudication Gastrointestinal: COMPLAINS OF: Nausea, DENIES: Abdominal pain, Black stools, Bloody stools, Constipation, Diarrhea, Vomiting, Difficulty Swallowing, Anorexia Musculoskeletal: DENIES: Joint pain, Muscle aches, Stiffness, Joint Swelling, Back pain, Neck pain Integumentary: DENIES: Abnormal pigmentation, Pruritus, Rash, Nail changes, Breast masses, Breast skin changes, Nipple discharge Hematologic/lymphatic: DENIES: Bruising, Lymphadenopathy Immunologic/allergic: DENIES: Eczema, Urticaria Neurologic: DENIES: Abnormal gait, Headache, Localized weakness, Paresthesias, Seizures, Speech Problems, Tremor, Poor Balance Psychiatric: DENIES: Anxiety, Confusion, Mood changes, Depression, Hallucinations, Agitation, Suicidal Ideation, Homicidal Ideation, Delusions Past Family Social History Past Medical History Hypertension Hyperlipidemia Chronic congestive heart failure Chronic atrial fibrillation Lumbar stenosis History kidney stones Hypothyroidism Mitral valve prolapse Macular degeneration Migraine cephalgia History of MGUSfollow up with Dr. Goodman History of rectal prolapse Past Surgical History Tonsillectomy Partial parathyroidectomy Hysterectomy Bilateral bunion removal Mitral valve repair Right ankle surgery Left wrist surgery Cystocele/rectocele repair Sacral colpopexy Reported Medications Reported Meds & Active Scripts Active Reported Pantoprazole (Pantoprazole Sodium) 40 Mg Tab 40 Mg PO DAILY K-Tab (Potassium Chloride) 20 Meq Tab 20 Meq PO DAILY PRN Lasix (Furosemide) 40 Mg Tab 40 Mg PO DAILY PRN Lortab (Hydrocodone-Acetaminophen) 10-325 Mg Tab 1 Tab PO Q6H PRN Ciprofloxacin (Ciprofloxacin HCl) 500 Mg Tab 500 Mg PO BID PRN Lorazepam 0.5 Mg Tab 0.5 Mg PO DAILY PRN Preservision-Lutein (Multiple Vitamins W/ Minerals) 1 Cap 1 Cap PO BID Zocor (Simvastatin) 40 Mg Tab 40 Mg PO HS Warfarin 2.5 Mg Tab 2.5 Mg PO take on Mon,Wed, Fri Warfarin 5 Mg Tab 5 Mg PO DIRECTED Sun,Tue, Sukhwinder,Sat, Sun Lopressor (Metoprolol Tartrate) 50 Mg Tab 25 Mg PO BID Phenobarbital 64.8 Mg Tab 64.8 Mg PO BID Dilantin (Phenytoin Extended) 100 Mg Cap 100 Mg PO BID Allergies: Coded Allergies: Demerol (Verified Allergy, Severe, NAUSEA AND DIZZY, 09/06/16) INTERMEDIATE REACTION Iodine (Verified Allergy, Severe, HIVES, 09/06/16) HIVES AFTER CARDIAC CATH AND EATING SHRIMP; NAUSEA Percocet (Verified Allergy, Severe, Hallucinations, 09/06/16) Seafood (Unverified Allergy, Intermediate, HIVES; SLEEPY; NAUSEA, 09/06/16) Lyrica (Verified Adverse Reaction, Severe, SEVERE PANIC ATTACK, 09/06/16) Family History Reviewed and significant for heart disease Social History Patient denies any tobacco, alcohol or illicit drugs Physical Exam Vital Signs Vital Signs Date Time Temp Pulse Resp B/P Pulse Ox O2 Delivery O2 Flow Rate FiO2 09/06/16 11:07 97 09/06/16 11:07 75 20 115/55 09/06/16 09:35 98.3 89 16 132/74 95 Physical Exam GENERAL: Well-developed, well-nourished, in no acute distress. alert and orientated HEENT: Head is normocephalic without any lesions or masses noted. Facial features are symmetric. Eyes: Pupils equal round reactive to light. Extraocular muscles are intact. Conjunctivae were clear. Oropharyngeal: Pharynx without any erythema edema. Tongue is midline without deviation. Buccal mucosa is moist without any masses or lesions NECK: Supple without any masses. Trachea midline no deviation. No JVD, no bruits are appreciated CARDIAC: Irregular rhythm, irregular rate. S1/S2 are heard. No murmurs gallops or rubs. LUNGS: Clear to auscultation bilaterally. No wheeze, rhonchi or rales. No use of accessory muscles on inspiration or expiration. ABDOMEN: Soft, nontender. Nondistended. Bowel sounds heard in all 4 quadrants. No organomegaly or masses. Negative rebound, negative guarding EXTREMITIES: No edema, pulses are equal bilaterally. No cyanosis or clubbing NEUROLOGY: Mood and affect appear appropriate. Cranial nerves II through XII grossly intact. Muscle strength 5/5 in upper and lower extremities bilaterally. Deep tendon reflexes are 2+ in upper and lower extremities bilaterally. Laboratory Laboratory Tests Test 09/06/16 10:00 White Blood Count 4.4 Red Blood Count 4.43 Hemoglobin 10.9 Hematocrit 34.8 Mean Corpuscular Volume 78.4 Mean Corpuscular Hemoglobin 24.5 Mean Corpuscular Hemoglobin 31.2 Concent Red Cell Distribution Width 19.6 Platelet Count 219 Mean Platelet Volume 8.8 Neutrophils (%) (Auto) 57.3 Lymphocytes (%) (Auto) 27.1 Monocytes (%) (Auto) 13.7 Eosinophils (%) (Auto) 1.1 Basophils (%) (Auto) 0.8 Neutrophils # (Auto) 2.6 Lymphocytes # (Auto) 1.2 Monocytes # (Auto) 0.6 Eosinophils # (Auto) 0.0 Basophils # (Auto) 0.0 CBC Comment AUTO DIFF Differential Comment AUTO DIFF CONFIRMED Prothrombin Time 30.1 Prothromb Time International 2.6 Ratio Activated Partial 35.8 Thromboplast Time Sodium Level 143 Potassium Level 3.8 Chloride Level 106 Carbon Dioxide Level 27.1 Anion Gap 10 Blood Urea Nitrogen 11 Creatinine 0.64 Estimat Glomerular Filtration 90 Rate Random Glucose 112 Calcium Level 9.6 Total Bilirubin 0.4 Aspartate Amino Transf 13 (AST/SGOT) Alanine Aminotransferase 11 (ALT/SGPT) Alkaline Phosphatase 97 Total Protein 7.0 Albumin 3.8 Lipase 296 Result Diagram: 09/06/16 1000 09/06/16 1000 Imaging Last Impressions Abdomen X-Ray 09/06/16 0000 Signed Impressions: Service Date/Time: Tuesday, September 06, 2016 10:02 - CONCLUSION: Bowel gas pattern within normal limits. Possible left renal calculus Scotty Khoury MD Assessment and Plan Problem List: (1) Nausea ICD Code: R11.0 Status: Acute (2) Chest pain ICD Code: R07.9 Status: Acute (3) PUD (peptic ulcer disease) ICD Code: K27.9 Status: Acute Assessment and Plan Nausea. Possible component of coronary disease, gastritis, ulcer Continue proton pump inhibitor Continue trending cardiac enzymes and EKGs rule out any underlying ischemia EKG in emergency department showed Q waves in inferior leads as well as T-wave abnormalities in V2V6, this was compared to previous EKGs and appears to be the same without any changes Nitroglycerin as needed for angina History of ulcer, gastritis Check stool for occult blood to rule out any upper GI bleed Monitor hemoglobin and hematocrit closely due to patient on Coumadin Continue proton pump inhibitor If no active bleeding is noted, patient should follow up outpatient with her GI doctor for endoscopy if needed Hypertension, chronic atrial fibrillation, hyperlipidemia Home medications have been continued History of seizures Continue home medications DVT prevention Patient is on Coumadin, INR therapeutic 2.6 This note was transcribed by jabari Leal. I, Dr. Navneet Correia personally performed the history, physical exam, and medical decision making; and confirmed the accuracy of the information in the transcribed note. Authenticated by Dr. Navneet Correia on 09/06/16 at 13:15. Code Status Full code Discussed Condition With Patient, ED physician Kalyan Leal Sep 06, 2016 12:09 Navneet Correia MD Sep 06, 2016 13:14
[2016-09-06 12:39] LABS: CREATINE KINASE 38 U/L (26-192)
[2016-09-06] MEDS ORDERED: LORazepam 0.5 MG TAB PO PRN (12:45)
[2016-09-06] MEDS ORDERED: FUROSEMIDE 40 MG TAB PO PRN (12:45)
[2016-09-06] MEDS ORDERED: ACETAMINOPHEN/HYDROcodone 325 MG/10 MG TAB PO PRN (12:45)
[2016-09-06] MEDS ORDERED: POTASSIUM CHLORIDE 20 MEQ CONTROLLED RELEASE TAB PO PRN (12:45)
[2016-09-06] MEDS ORDERED: WARFARIN SOD 5 MG TAB PO SCH (16:00)
[2016-09-06] MEDS: ALUMINUM/MAGNESIUM/SIMETH 30 ML CUP PO SCH ×3 (17:27→21:25)
[2016-09-06 18:54] LABS: MAGNESIUM 2.2 MG/DL (1.5-2.5)
[2016-09-06 19:07] LABS: CREATINE KINASE 33 U/L (26-192)
[2016-09-06] MEDS ORDERED: PRAVASTATIN SOD 80 MG TAB PO SCH (21:00)
[2016-09-06] MEDS ORDERED: SODIUM CHLORIDE 0.9% FLUSH 10 ML FLUSH IV FLUSH SCH (21:00)
[2016-09-06] MEDS: METOPROLOL TARTRATE 25 MG TAB PO SCH (21:25)
[2016-09-06] MEDS: PHENobarbital 32.4 MG TAB PO SCH (21:25)
[2016-09-06] MEDS: PHENYTOIN SODIUM 100 MG CAP PO SCH (21:25)
[2016-09-07 00:17] VITALS: BP 120/74; PULSE 74; RESP 14; TEMP 97.2; O2SAT 92
[2016-09-07 01:13] LABS: CREATINE KINASE 36 U/L (26-192)
[2016-09-07 05:05] VITALS: BP 166/89; PULSE 80; RESP 14; TEMP 96; O2SAT 92
[2016-09-07 06:42] LABS: AUTOMATED NEUTROPHIL # 3.6 TH/MM3 (1.8-7.7); BASOPHIL % 0.8 % (0.0-2.0); EOSINOPHIL # 0.1 TH/MM3 (0-0.4); EOSINOPHIL % 1.3 % (0.0-4.0); LYMPH % 21.6 % (9.0-44.0); LYMPHOCYTE # 1.2 TH/MM3 (1.0-4.8); MEAN CELL VOLUME 77.2 FL (80.0-100.0); MEAN CORPUSCULAR HEMOGLOBIN 24.3 PG (27.0-34.0); MEAN CORPUSCULAR HGB CONC 31.5 % (32.0-36.0); MONO % 12.1 % (0.0-8.0); NEUT % 64.2 % (16.0-70.0); PLATELET COUNT 230 TH/MM3 (150-450); RED BLOOD COUNT 4.53 MIL/MM3 (4.00-5.30); RED CELL DISTRIBUTION WIDTH 19.6 % (11.6-17.2); WHITE BLOOD COUNT 5.6 TH/MM3 (4.0-11.0)
[2016-09-07 06:51] LABS: HEMO FLAGS AUTO DIFF
[2016-09-07 06:57] LABS: INTERNATIONAL NORMALIZED RATIO 2.6 RATIO; PROTHROMBIN TIME - PATIENT 30.1 SEC (9.8-11.6)
[2016-09-07 07:06] LABS: BICARBONATE 28.1 MEQ/L (21.0-32.0)
[2016-09-07 07:26] LABS: SCAN/DIFF AUTO DIFF CONFIRMED
[2016-09-07 08:00] VITALS: BP 144/76; PULSE 96; RESP 20; TEMP 97.4; O2SAT 96
[2016-09-07] MEDS ORDERED: PANTOPRAZOLE SOD 40 MG DELAYED RELEASE TAB PO SCH (09:00)
[2016-09-07] MEDS: PHENYTOIN SODIUM 100 MG CAP PO SCH (09:24)
[2016-09-07] MEDS: METOPROLOL TARTRATE 25 MG TAB PO SCH (09:25)
[2016-09-07] MEDS: PHENobarbital 32.4 MG TAB PO SCH (09:25)
[2016-09-07] MEDS: ALUMINUM/MAGNESIUM/SIMETH 30 ML CUP PO SCH (09:25)
--- NOTE | 2016-09-07 09:39 | HHI.PR ---
Subjective Remarks Follow-up intractable nausea without emesis 09/07/16-patient seen and examined, ACS ruled out per protocol with serial cardiac enzyme and EKGs. Patient denies any chest pain however continue to have nausea even though improved. Objective Vitals Vital Signs Date Time Temp Pulse Resp B/P Pulse Ox O2 Delivery O2 Flow Rate FiO2 09/07/16 08:00 97.4 96 20 144/76 96 09/07/16 05:05 96.0 80 14 166/89 92 09/07/16 00:17 97.2 74 14 120/74 92 09/06/16 22:00 84 09/06/16 20:14 97.9 99 14 109/63 91 09/06/16 18:19 88 09/06/16 16:00 98.7 88 20 116/65 94 09/06/16 13:00 97.2 72 20 130/68 94 09/06/16 12:26 72 20 118/60 09/06/16 11:07 97 09/06/16 11:07 75 20 115/55 I/O 09/06/16 09/06/16 09/06/16 09/07/16 09/07/16 09/07/16 07:00 15:00 23:00 07:00 15:00 23:00 Intake Total 550 ml 120 ml Balance 550 ml 120 ml Intake Oral 550 ml 120 ml # Voids 1 2 Result Diagram: 09/07/16 0609 09/07/16 0609 Imaging Last Impressions Abdomen X-Ray 09/06/16 0000 Signed Impressions: Service Date/Time: Tuesday, September 06, 2016 10:02 - CONCLUSION: Bowel gas pattern within normal limits. Possible left renal calculus Scotty Khoury MD Objective Remarks GENERAL: NAD SKIN: Warm and dry. HEAD: Normocephalic. EYES: No scleral icterus. No injection or drainage. NECK: Supple, trachea midline. No JVD or lymphadenopathy. CARDIOVASCULAR: Regular rate and rhythm without murmurs, gallops, or rubs. RESPIRATORY: Breath sounds equal bilaterally. No accessory muscle use. GASTROINTESTINAL: Abdomen soft, non-tender, nondistended. MUSCULOSKELETAL: No cyanosis, or edema. BACK: Nontender without obvious deformity. No CVA tenderness. Procedures none A/P Problem List: (1) Nausea ICD Code: R11.0 Status: Acute (2) Chest pain ICD Code: R07.9 Status: Acute (3) PUD (peptic ulcer disease) ICD Code: K27.9 Status: Acute Assessment and Plan 75-year-old female with Nausea. Possible component of coronary disease, gastritis, ulcer Continue proton pump inhibitor ACS ruled out per protocol with serial cardiac enzyme and EKGs EKG in emergency department showed Q waves in inferior leads as well as T-wave abnormalities in V2V6, this was compared to previous EKGs and appears to be the same without any changes Nitroglycerin as needed for angina History of ulcer, gastritis H&H stable Monitor hemoglobin and hematocrit closely due to patient on Coumadin Continue proton pump inhibitor If no active bleeding is noted, patient should follow up outpatient with her GI doctor for endoscopy if needed Hypertension, chronic atrial fibrillation, hyperlipidemia Home medications have been continued History of seizures Continue home medications DVT prevention Patient is on Coumadin, INR therapeutic Discharge Planning Discharge patient to home Condition on discharge: Improved Regular Diet as tolerated Ad Jenny activity Rx written: See EMR Follow-up with primary care physician in one week Navneet Correia MD Sep 07, 2016 09:39
[2016-09-07] MEDS ORDERED: PANT40TA3 PO (09:41)
--- NOTE | 2016-09-07 12:11 | EKG ---
Date Performed: 09/06/2016 Time Performed: 23:48:40 PTAGE: 75 years EKG: Sinus rhythm WITH FREQUENT SUPRAVENTRICULAR PREMATURE COMPLEXES NONSPECIFIC T-WAVE ABNORMALITY Since previous tra cing, no significant change noted ABNORMAL RHYTHM ECG PREVIOUS TRACING : 09/06/2016 18.00 DOCTOR: Eddie Crowley Interpretating Date/Time 09/07/2016 12:11:38
--- NOTE | 2016-09-07 12:12 | EKG ---
Date Performed: 09/06/2016 Time Performed: 18:00:40 PTAGE: 75 years EKG: Sinus rhythm WITH FREQUENT SUPRAVENTRICULAR PREMATURE COMPLEXES INFERIOR MYOCARDIAL INFARCTION MODERATE T-WAVE AB NORMALITY, CONSIDER ANTEROLATERAL ISCHEMIA Since previous tracing, no significant change noted ABNORM AL ECG PREVIOUS TRACING : 09/06/2016 10.01 DOCTOR: Eddie Crowley Interpretating Date/Time 09/07/2016 12:11:57
--- NOTE | 2016-09-07 15:26 | ECHRPT ---
Indication: Chest pain, unspecified CONCLUSIONS Normal left ventricular size. Mild concentric left ventricular hypertrophy. The left ventricular systolic function is mildly reduced with an estimated ejection fraction in the range of 45- 50%. The left atrial size is mildly dilated. Trace mitral valve regurgitation. There is estimated moderate pulmonary hypertension present (range 50-60 mmHg). BP: / HR: Rhythm: MEASUREMENTS (Male / Female) Normal Values Technical Quality:Technically difficult study 2D ECHO LV Diastolic Diameter PLAX 5.8 cm 4.2 - 5.9 / 3.9 - 5.3 cm LV Systolic Diameter PLAX 4.7 cm IVS Diastolic Thickness 1.4 cm 0.6 - 1.0 / 0.6 - 0.9 cm LVPW Diastolic Thickness 1.5 cm 0.6 - 1.0 / 0.6 - 0.9 cm LV Relative Wall Thickness 0.5 RV Internal Dim ED PLAX 3.6 cm M-MODE Aortic Root Diameter MM 4.2 cm LA Systolic Diameter MM 4.7 cm LA Ao Ratio MM 1.1 AV Cusp Separation MM 1.9 cm DOPPLER MV Area PHT 2.1 cm Mitral E Point Velocity 90.8 cm/s Mitral A Point Velocity 93.3 cm/s Mitral E to A Ratio 1.0 LV E' Lateral Velocity 6.4 cm/s Mitral E to LV E' Lateral Ratio 14.1 LV E' Septal Velocity 10.3 cm/s Mitral E to LV E' Septal Ratio 8.8 TR Peak Velocity 319.0 cm/s TR Peak Gradient 40.7 mmHg FINDINGS LEFT VENTRICLE Normal left ventricular size. Mild concentric left ventricular hypertrophy. The left ventricular systolic function is mildly reduced with an estimated ejection fraction in the range of 45- 50%. LEFT ATRIUM The left atrial size is mildly dilated. MITRAL VALVE Trace mitral valve regurgitation. The mitral valve area by Pressure Halftime Method is 2.1__ cm. TRICUSPID VALVE Structurally normal tricuspid valve. There is mild tricuspid valve regurgitation. There is estimated moderate pulmonary hypertension present (range 50-60 mmHg). VESSELS The inferior vena cava was not well visualized. Feliberto Roach MD (Electronically Signed) Final Date:07 September 2016 15:25
[2016-09-08] MEDS ORDERED: WARFARIN SOD 2.5 MG TAB PO SCH (16:00)
--- NOTE | 2016-09-09 08:46 | EKG ---
Date Performed: 09/06/2016 Time Performed: 10:01:22 PTAGE: 75 years EKG: Sinus rhythm WITH FREQUENT SUPRAVENTRICULAR PREMATURE COMPLEXES INFERIOR MYOCARDIAL INFARCTION MODERATE T-WAVE AB NORMALITY, CONSIDER ANTEROLATERAL ISCHEMIA ABNORMAL ECG PREVIOUS TRACING : 08/19/2015 22.22 DOCTOR: Najma Joshi Interpretating Date/Time 09/09/2016 08:42:37
== END 2016-09-07 10:54 | disposition home or self-care (01) ==
LOC: PHED 09:31 → PHEDH 11:46 → UNDOADMOB 11:46 → PHEDA 11:46 → PHEDH 13:14 → PH3A 13:14 → UNDODISOB 09-07 10:54
PROVIDERS: ADMIT Hospitalist; ATTEND Hospitalist
DX: K27.9 Peptic ulcer, site unspecified, unspecified as acute or chronic, without hemorrhage or perforation (principal); R11.0 Nausea; I11.0 Hypertensive heart disease with heart failure; I50.9 Heart failure, unspecified; I48.91 Unspecified atrial fibrillation; E03.9 Hypothyroidism, unspecified; E11.9 Type 2 diabetes mellitus without complications; E78.00 Pure hypercholesterolemia, unspecified; R56.9 Unspecified convulsions; G62.9 Polyneuropathy, unspecified; G43.909 Migraine, unspecified, not intractable, without status migrainosus; Z79.01 Long term (current) use of anticoagulants
CPT/HCPCS: 74020; 80048; 80053; 82550; 83690; 83735; 84484; 85025; 85610; 85730; 93005; 93306; 96374; 96375; 99285; C9113; G0378; J2405

== ENCOUNTER → 2016-10-21 | Outpatient (CLI) | payer MEDICARE, BC ==
[~2016-10-21] MED LIST changes: -CALCTAB70 PO; +CIPR-9 PO; -CIPR500T2 PO; -EXCETAB2 PO; +EXCETAB30; -PERC5TAB12 PO; +PRED10PA PO; +ZITH500T PO; +ZOFR8TAB PO
[2016-10-21 10:12] LABS: BASOPHIL # 0.1 TH/MM3 (0-0.2); BASOPHIL % 1.3 % (0.0-2.0); EOSINOPHIL # 0.1 TH/MM3 (0-0.4); EOSINOPHIL % 2.1 % (0.0-4.0); HEMATOCRIT 34.6 % (35.0-46.0); HEMO FLAGS DIFF FINAL; LYMPH % 28.2 % (9.0-44.0); LYMPHOCYTE # 1.1 TH/MM3 (1.0-4.8); MEAN CELL VOLUME 77.6 FL (80.0-100.0); MEAN CORPUSCULAR HEMOGLOBIN 25.1 PG (27.0-34.0); MEAN CORPUSCULAR HGB CONC 32.4 % (32.0-36.0); MONO % 15.3 % (0.0-8.0); NEUT % 53.1 % (16.0-70.0); PLATELET COUNT 187 TH/MM3 (150-450); RED BLOOD COUNT 4.46 MIL/MM3 (4.00-5.30); RED CELL DISTRIBUTION WIDTH 21.8 % (11.6-17.2); WHITE BLOOD COUNT 3.8 TH/MM3 (4.0-11.0)
[2016-10-21 10:39] LABS: ALKALINE PHOSPHATASE 109 U/L (45-117); ALT (GPT) 13 U/L (10-53); HDL CHOLESTEROL 86.4 MG/DL (40.0-60.0); PHENOBARBITAL 37.6 MCG/ML (15.0-40.0); TOTAL BILIRUBIN ADULT 0.2 MG/DL (0.2-1.0)
[2016-10-21 10:41] LABS: ANION GAP 10 MEQ/L (5-15); AST (GOT) 14 U/L (15-37); BICARBONATE 26.2 MEQ/L (21.0-32.0); BLOOD UREA NITROGEN 17 MG/DL (7-18); CHLORIDE 106 MEQ/L (98-107); GLOMERULAR FILTRATION RATE 84 ML/MIN (>89); GLUCOSE,FASTING 106 MG/DL (74-99); LDL CHOLESTEROL 116 MG/DL (0-99); POTASSIUM 4.5 MEQ/L (3.5-5.1); SODIUM (NA) 142 MEQ/L (136-145)
[2016-10-21 16:53] LABS: HEMOGLOBIN A1a 1.2 %; HEMOGLOBIN LA1C 2.3 %; HEMOGLOBIN P3 4.7 %
== END ==
LOC: CLAB 09:27
PROVIDERS: ATTEND Family Medicine
DX: I48.91 Unspecified atrial fibrillation (principal); I50.9 Heart failure, unspecified; E11.9 Type 2 diabetes mellitus without complications; G40.909 Epilepsy, unspecified, not intractable, without status epilepticus; E78.5 Hyperlipidemia, unspecified; R56.9 Unspecified convulsions; I11.0 Hypertensive heart disease with heart failure; Z79.01 Long term (current) use of anticoagulants
CPT/HCPCS: 36415; 80053; 80061; 80184; 80185; 83036; 85025

== ENCOUNTER → 2016-10-30 | Outpatient (CLI) | payer MEDICARE, BC | LOC: CLAB 10:07 | PROVIDERS: ATTEND Family Medicine | DX: R56.9 Unspecified convulsions (principal) | CPT/HCPCS: 36415; 80185 ==

== ENCOUNTER 2016-11-21 13:57 | Emergency (ER) | payer MEDICARE, BC ==
[~2016-11-21] VITALS: Ht 160 cm; Wt 74.2 kg
[~2016-11-21 13:57] MED LIST changes: -BETH25TA2 PO; -CIPR-9 PO; -EXCETAB30; -PRED10PA PO; -ZITH500T PO; -ZOFR8TAB PO
[2016-11-21 14:08] VITALS: BP 132/81; PULSE 98; RESP 14; TEMP 98.3; O2SAT 95
[2016-11-21] MEDS ORDERED: PRESCAP6 PO (14:29)
[2016-11-21] MEDS ORDERED: LIDOCAINE HCL 1% 50 ML VIAL INFIL ONE (14:30)
--- NOTE | 2016-11-21 15:07 | PD ---
HPI Chief Complaint: Bleeding Time Seen by Provider: 14:21 Travel History International Travel<30 days: No Contact w/Intl Traveler<30days: No Traveled to known affect area: No History of Present Illness HPI 75-year-old female that presents to the ED for evaluation of bleeding from a injection site. Patient had an injection of cortisone to her left knee today by Dr. Kim. Patient takes Coumadin and she had some bleeding after it but it went away. Per patient she got home and his been bleeding since. Per patient is happened about 6 hours ago. Patient comes here concerned for bleeding. She states that her last INR was slightly elevated which was 3.6. This was on Thursday. Her dose was not modified. She denies any other pain. No other symptoms. She denies any new injuries. PFSH Past Medical History Hx Anticoagulant Therapy: Yes Arthritis: Yes Asthma: No Atrial Fibrillation: Yes Autoimmune Disease: No Blood Disorders: No Anxiety: Yes Depression: No Heart Rhythm Problems: Yes (A-FIB) Cancer: No Cardiac Catheterization: No Cardiovascular Problems: Yes (Cardiomegaly, CHF, mitral repair, AF) High Cholesterol: Yes Chemotherapy: No Chest Pain: No Congestive Heart Failure: Yes COPD: No Cerebrovascular Accident: No Diabetes: Yes Patient Takes Glucophage: No Diminished Hearing: No Deep Vein Thrombosis: No Endocrine: Yes Gastrointestinal Disorders: Yes (RECTAL PROLAPSE REPAIR) GERD: No Glaucoma: No Genitourinary: Yes (CHRONIC UTI'S) Headaches: Yes Hepatitis: No Hiatal Hernia: No Heparin Induced Thrombocytopen: No Hypertension: Yes Immune Disorder: No Implanted Vascular Access Dvce: Yes Kidney Stones: Yes Musculoskeletal: Yes (ARTHRITIS, CHR. BACK PAIN ; OSTEOPORSIS) Neurologic: Yes (CHRONIC RT FOOT NEUROPATHY, MIGRANES, HX SEIZURES) Psychiatric: No Reproductive: No Respiratory: No Migraines: Yes Myocardial Infarction: No Radiation Therapy: No Renal Failure: No Seizures: Yes (started in teenage years last seizure was in 1965) Sickle Cell Disease: No Sleep Apnea: No Thyroid Disease: Yes (PARTIAL THYROID REMOVED FOR CYSTS IN 1953) Ulcer: No Influenza Vaccination: Yes ?: Not Menopausal: Yes : 5 Para: 3 Miscarriage: 2 : 0 Past Surgical History Abdominal Aneurysm Repair: No Abdominal Surgery: No AICD: No Appendectomy: No Arteriovenous Shunt: No Body Medical Devices: PLATE LEFT WRIST; HEART VALVE RING Cardiac Surgery: Yes (MITRAL VALVE REPAIR 2003) Cholecystectomy: No Coronary Artery Bypass Graft: No Ear Surgery: No Endocrine Surgery: Yes (PARTIAL THYROIDECTOMY 1957) Eye Surgery: No Genitourinary Surgery: Yes (BLADDER SUSP. 2011) Gynecologic Surgery: Yes (HYSTERECTOMY ) Hysterectomy: Yes Insulin Pump: No Joint Replacement: Yes (right knee) Neurologic Surgery: No Oral Surgery: Yes (TONSILLECTOMY 1945 ; 07/28 BRONCHOSCOPY) Pacemaker: No Thoracic Surgery: No Tonsillectomy: Yes (1945) Valve Replacement: Yes (2003- MITRAL VALVE) Other Surgery: Yes (BILAT BUNION REMOVAL IN 1996) Family History Family Myocardial Infarction: Yes Social History Alcohol Use: No Tobacco Use: No Substance Use: No Allergies-Medications (Allergen,Severity, Reaction): Coded Allergies: acetaminophen (Unverified Allergy, Severe, Hallucinations, 10/28/16) iodine (Unverified Allergy, Severe, HIVES, 10/28/16) HIVES AFTER CARDIAC CATH AND EATING SHRIMP; NAUSEA meperidine (Unverified Allergy, Severe, NAUSEA AND DIZZY, 10/28/16) INTERMEDIATE REACTION oxycodone (Unverified Allergy, Severe, Hallucinations, 10/28/16) potassium iodide (Unverified Allergy, Severe, HIVES, 10/28/16) HIVES AFTER CARDIAC CATH AND EATING SHRIMP; NAUSEA povidone-iodine (Unverified Allergy, Severe, HIVES, 10/28/16) HIVES AFTER CARDIAC CATH AND EATING SHRIMP; NAUSEA sodium iodide (Unverified Allergy, Severe, HIVES, 10/28/16) HIVES AFTER CARDIAC CATH AND EATING SHRIMP; NAUSEA sodium iodide (Unverified Allergy, Severe, HIVES, 10/28/16) HIVES AFTER CARDIAC CATH AND EATING SHRIMP; NAUSEA Fish Containing Products (Unverified Allergy, Intermediate, HIVES; SLEEPY ; NAUSEA, 10/28/16) pregabalin (Unverified Adverse Reaction, Severe, SEVERE PANIC ATTACK, 10/28) Reported Meds & Prescriptions Reported Meds & Active Scripts Active Pantoprazole (Pantoprazole Sodium) 40 Mg Tab 40 Mg PO DAILY Reported Preservision-Lutein (Multiple Vitamins W/ Minerals) 1 Cap 1 Cap PO DAILY K-Tab (Potassium Chloride) 20 Meq Tab 20 Meq PO DAILY PRN Lasix (Furosemide) 40 Mg Tab 40 Mg PO DAILY PRN Lortab (Hydrocodone-Acetaminophen) 10-325 Mg Tab 1 Tab PO Q6H PRN Lorazepam 0.5 Mg Tab 0.5 Mg PO DAILY PRN Preservision-Lutein (Multiple Vitamins W/ Minerals) 1 Cap 1 Cap PO BID Zocor (Simvastatin) 40 Mg Tab 40 Mg PO HS Warfarin 2.5 Mg Tab 2.5 Mg PO take on Mon,Wed, Fri Warfarin 5 Mg Tab 5 Mg PO DIRECTED Sun,Tue, Thur,Sat, Sun Lopressor (Metoprolol Tartrate) 50 Mg Tab 25 Mg PO BID Phenobarbital 64.8 Mg Tab 64.8 Mg PO BID Dilantin (Phenytoin Extended) 100 Mg Cap 100 Mg PO BID Review of Systems Except as stated in HPI: all other systems reviewed are Neg Physical Exam Narrative GENERAL: SKIN: Warm and dry. HEAD: Atraumatic. Normocephalic. EYES: Pupils equal and round. No scleral icterus. No injection or drainage. ENT: No nasal bleeding or discharge. Mucous membranes pink and moist. Tongue is midline. No uvula deviation. NECK: Trachea midline. No JVD. CARDIOVASCULAR: Regular rate and rhythm. No murmurs, S3, S4. RESPIRATORY: No accessory muscle use. Clear to auscultation. Breath sounds equal bilaterally. GASTROINTESTINAL: Abdomen soft, non-tender, nondistended. Hepatic and splenic margins not palpable. MUSCULOSKELETAL: Extremities without clubbing, cyanosis, or edema. No obvious deformities. Full range of motion of the upper and lower extremities bilaterally. 2+ pulses bilaterally. Patient has a very small puncture wound- like lesion on the lateral left knee. Minimal bleeding noted. Stops with pressure but continues without pressure. NEUROLOGICAL: Awake and alert. No obvious cranial nerve deficits. Motor grossly within normal limits. Five out of 5 muscle strength in the arms and legs. Normal speech. PSYCHIATRIC: Appropriate mood and affect; insight and judgment normal. Data Data Last Documented VS Vital Signs Date Time Temp Pulse Resp B/P (MAP) Pulse Ox O2 Delivery O2 Flow Rate FiO2 11/21/16 14:08 98.3 98 14 132/81 (98) 95 Room Air Orders Orders Prothrombin Time / Inr (Pt) (11/21/16 14:19) Wound Care (11/21/16 14:19) Lidocaine 1% Inj (50 Ml) (Xylocaine 1% I (11/21/16 14:30) Labs Laboratory Tests Test 11/21/16 14:45 [facility] Medical Decision Making Medical Screen Exam Complete: Yes Emergency Medical Condition: Yes Medical Record Reviewed: Yes Differential Diagnosis Laceration versus bleeding versus normal exam versus coagulopathy Narrative Course 75-year-old female that presents to the ED for evaluation of bleeding from puncture wound. Patient was properly examined and was found to have signs and symptoms consistent with bleeding. I recommend suturing. Please refer to my procedure note. Patient agree with plan. INR was checked and was found to be slightly elevated. Patient was told to withheld her med. Follow with PCP. See ED if worst. Procedures Procedure Narrative LACERATION LOCATION: left knee LENGTH: puncture wound NUMBER OF STITCHES/MARGY: 2 sutures REPAIR: The area of the laceration was prepped with Betadine and sterilely draped. The laceration was infiltrated with 1% Xylocaine. The wound was copiously irrigated and explored without evidence of foreign body, tendon injury or neurovascular injury. The wound was closed using 5-0 Vycril. This was a 1 layer repair. A sterile dressing was applied. The patient was advised to keep the dressing clean and dry. Patient tolerated the procedure well. Diagnosis Primary Impression: Bleeding Patient Instructions: General Instructions Additional Instructions: Follow with your doctor. See ED worsening symptoms. Sutures will come off on the wrong in the next couple of weeks to a month. Watch for signs of infection. Keep area covered for today and tomorrow. Med/Other Pt SpecificInfo: No Change to Meds Disposition: 01 DISCHARGE HOME Condition: Stable Pierre Lehman Nov 21, 2016 15:07
[2016-11-21 15:13] LABS: INTERNATIONAL NORMALIZED RATIO 2.8 RATIO; PROTHROMBIN TIME - PATIENT 32.2 SEC (9.8-11.6)
== END 2016-11-21 15:26 | disposition home or self-care (01) ==
LOC: PHEFT 13:57
DX: S81.032A Puncture wound without foreign body, left knee, initial encounter (principal); I48.91 Unspecified atrial fibrillation; W26.8XXA Contact with other sharp object(s), not elsewhere classified, initial encounter; Z79.01 Long term (current) use of anticoagulants
CPT/HCPCS: 12001; 85610

== ENCOUNTER 2016-12-28 13:43 | Emergency (ER) | payer BC, MEDICARE ==
[~2016-12-28] VITALS: Ht 160 cm; Wt 78.0 kg
[2016-12-28 13:49] VITALS: BP 179/83; PULSE 105; RESP 18; TEMP 99.2; O2SAT 96
[2016-12-28] MEDS ORDERED: DILA100C PO ×2 (14:12)
[2016-12-28] MEDS ORDERED: EXCETAB30 (14:12)
[2016-12-28] MEDS ORDERED: BETH25TA2 PO (14:14)
--- NOTE | 2016-12-28 14:14 | PD ---
HPI Chief Complaint: Respiratory Symptoms Time Seen by Provider: 14:07 Travel History International Travel<30 days: No Contact w/Intl Traveler<30days: No Traveled to known affect area: No History of Present Illness HPI Patient presents with gradual onset of shortness of breath cough and malaise over the last 5-7 days. Five-year history of A. fib, controlled with beta piter and anticoagulation. History of heart failure. Denies any chest pain urinary or bowel symptoms. Denies any nausea vomiting diarrhea or fever. No history of COPD. No sick contacts. No new rashes. PFSH Past Medical History Hx Anticoagulant Therapy: Yes Arthritis: Yes Asthma: No Atrial Fibrillation: Yes Autoimmune Disease: No Blood Disorders: No Anxiety: Yes Depression: No Heart Rhythm Problems: Yes (A-FIB) Cancer: No Cardiac Catheterization: No Cardiovascular Problems: Yes (Cardiomegaly, CHF, mitral repair, AF) High Cholesterol: Yes Chemotherapy: No Chest Pain: No Congestive Heart Failure: Yes COPD: No Cerebrovascular Accident: No Diabetes: Yes Patient Takes Glucophage: Yes Diminished Hearing: No Deep Vein Thrombosis: No Endocrine: Yes Gastrointestinal Disorders: Yes (RECTAL PROLAPSE REPAIR) GERD: No Glaucoma: No Genitourinary: Yes (CHRONIC UTI'S) Headaches: Yes Hepatitis: No Hiatal Hernia: No Heparin Induced Thrombocytopen: No Hypertension: Yes Immune Disorder: No Implanted Vascular Access Dvce: Yes Kidney Stones: Yes Musculoskeletal: Yes (ARTHRITIS, CHR. BACK PAIN ; OSTEOPORSIS) Neurologic: Yes (CHRONIC RT FOOT NEUROPATHY, MIGRANES, HX SEIZURES) Psychiatric: No Reproductive: No Respiratory: No Migraines: Yes Myocardial Infarction: No Radiation Therapy: No Renal Failure: No Seizures: Yes (started in teenage years last seizure was in 1964) Sickle Cell Disease: No Sleep Apnea: No Thyroid Disease: Yes (PARTIAL THYROID REMOVED FOR CYSTS IN 1952) Ulcer: No Tetanus Vaccination: > 5 Years Influenza Vaccination: Yes ?: Not Menopausal: Yes : 5 Para: 3 Miscarriage: 2 : 0 Past Surgical History Abdominal Aneurysm Repair: No Abdominal Surgery: No AICD: No Appendectomy: No Arteriovenous Shunt: No Body Medical Devices: PLATE LEFT WRIST; HEART VALVE RING Cardiac Surgery: Yes (MITRAL VALVE REPAIR 2003) Cholecystectomy: No Coronary Artery Bypass Graft: No Ear Surgery: No Endocrine Surgery: Yes (PARTIAL THYROIDECTOMY 1957) Eye Surgery: No Genitourinary Surgery: Yes (BLADDER SUSP. 2011) Gynecologic Surgery: Yes (HYSTERECTOMY 79') Hysterectomy: Yes Insulin Pump: No Joint Replacement: Yes (right knee) Neurologic Surgery: No Oral Surgery: Yes (TONSILLECTOMY 1945 ; 07/28 BRONCHOSCOPY) Pacemaker: No Thoracic Surgery: No Tonsillectomy: Yes (1945) Valve Replacement: Yes (2003- MITRAL VALVE) Other Surgery: Yes (BILAT BUNION REMOVAL IN 1996) Family History Family Myocardial Infarction: Yes Social History Alcohol Use: No Tobacco Use: No Substance Use: No Allergies-Medications (Allergen,Severity, Reaction): Coded Allergies: acetaminophen (Unverified Allergy, Severe, Hallucinations, 12/28/16) iodine (Unverified Allergy, Severe, HIVES, 12/28/16) HIVES AFTER CARDIAC CATH AND EATING SHRIMP; NAUSEA meperidine (Unverified Allergy, Severe, NAUSEA AND DIZZY, 12/28/16) INTERMEDIATE REACTION oxycodone (Unverified Allergy, Severe, Hallucinations, 12/28/16) potassium iodide (Unverified Allergy, Severe, HIVES, 12/28/16) HIVES AFTER CARDIAC CATH AND EATING SHRIMP; NAUSEA povidone-iodine (Unverified Allergy, Severe, HIVES, 12/28/16) HIVES AFTER CARDIAC CATH AND EATING SHRIMP; NAUSEA sodium iodide (Unverified Allergy, Severe, HIVES, 12/28/16) HIVES AFTER CARDIAC CATH AND EATING SHRIMP; NAUSEA sodium iodide (Unverified Allergy, Severe, HIVES, 12/28/16) HIVES AFTER CARDIAC CATH AND EATING SHRIMP; NAUSEA Fish Containing Products (Unverified Allergy, Intermediate, HIVES; SLEEPY ; NAUSEA, 12/28/16) pregabalin (Unverified Adverse Reaction, Severe, SEVERE PANIC ATTACK, ) Reported Meds & Prescriptions Reported Meds & Active Scripts Active Pantoprazole (Pantoprazole Sodium) 40 Mg Tab 40 Mg PO DAILY Reported Bethanechol 25 Mg Tab 12.5 Mg PO QID Excedrin Migraine Caplet (Aspirin/Acetaminophen/Caffeine) 250 Mg-250 Mg-65 Mg Tablet Dilantin (Phenytoin Extended) 100 Mg Cap 200 Mg PO HS Dilantin (Phenytoin Extended) 100 Mg Cap 100 Mg PO DAILY@0600 Preservision-Lutein (Multiple Vitamins W/ Minerals) 1 Cap 1 Cap PO DAILY Lortab (Hydrocodone-Acetaminophen) 10-325 Mg Tab 1 Tab PO Q6H PRN Lorazepam 0.5 Mg Tab 0.5 Mg PO DAILY PRN Preservision-Lutein (Multiple Vitamins W/ Minerals) 1 Cap 1 Cap PO BID Zocor (Simvastatin) 40 Mg Tab 40 Mg PO HS Warfarin 2.5 Mg Tab 2.5 Mg PO take on Mon,Wed, Fri Warfarin 5 Mg Tab 5 Mg PO DIRECTED Sun,Tue, Thur,Sat, Sun Lopressor (Metoprolol Tartrate) 50 Mg Tab 25 Mg PO BID Phenobarbital 64.8 Mg Tab 64.8 Mg PO BID Review of Systems General / Constitutional: No: Fever Eyes: No: Visual changes HENT: No: Headaches Cardiovascular: No: Chest Pain or Discomfort Respiratory: Positive: Cough, Shortness of Breath Gastrointestinal: No: Abdominal Pain Genitourinary: No: Dysuria Musculoskeletal: No: Pain Skin: No Rash Neurologic: No: Weakness Psychiatric: No: Depression Endocrine: No: Polydipsia Hematologic/Lymphatic: No: Easy Bruising Physical Exam Narrative GENERAL: Well-nourished, well-developed patient. SKIN: Focused skin assessment warm/dry. HEAD: Normocephalic. EYES: No scleral icterus. No injection or drainage. NECK: Supple, trachea midline. No JVD or lymphadenopathy. CARDIOVASCULAR: Irregular rate and rhythm, no murmurs, tachycardic. RESPIRATORY: Good breath sounds mildly decreased bilateral bases GASTROINTESTINAL: Abdomen soft, non-tender, nondistended. MUSCULOSKELETAL: No cyanosis, or edema. BACK: Nontender without obvious deformity. No CVA tenderness. Data Data Last Documented VS Vital Signs Date Time Temp Pulse Resp B/P (MAP) Pulse Ox O2 Delivery O2 Flow Rate FiO2 12/28/16 14:58 98 Nasal Cannula 2.00 12/28/16 13:49 99.2 105 18 179/83 (115) Orders Orders Complete Blood Count With Diff (12/28/16 14:07) Comprehensive Metabolic Panel (12/28/16 14:07) B-Type Natriuretic Peptide (12/28/16 14:07) D-Dimer (12/28/16 14:07) Ckmb (Isoenzyme) Profile (12/28/16 14:07) Troponin I (12/28/16 14:07) Urinalysis - C+S If Indicated (12/28/16 14:07) Iv Access Insert/Monitor (12/28/16 14:07) Ecg Monitoring (12/28/16 14:07) Oximetry (12/28/16 14:07) Oxygen Administration (12/28/16 14:07) Chest, Single Ap (12/28/16 14:07) Sodium Chloride 0.9% Flush (Ns Flush) (12/28/16 14:15) Methylprednisolone So Succ Inj (Solumedr (12/28/16 14:15) Azithromycin Inj (Zithromax Inj) (12/28/16 14:15) Ondansetron Inj (Zofran Inj) (12/28/16 14:30) Electrocardiogram (12/28/16 13:46) Labs Laboratory Tests Test 12/28/16 14:15 White Blood Count 7.0 TH/MM3 Red Blood Count 4.54 MIL/MM3 Hemoglobin 12.3 GM/DL Hematocrit 38.3 % Mean Corpuscular Volume 84.3 FL Mean Corpuscular Hemoglobin 27.1 PG Mean Corpuscular Hemoglobin Concent 32.2 % Red Cell Distribution Width 23.6 % Platelet Count 195 TH/MM3 Mean Platelet Volume 8.9 FL Neutrophils (%) (Auto) 81.5 % Lymphocytes (%) (Auto) 13.6 % Monocytes (%) (Auto) 3.3 % Eosinophils (%) (Auto) 0.6 % Basophils (%) (Auto) 1.0 % Neutrophils # (Auto) 5.8 TH/MM3 Lymphocytes # (Auto) 0.9 TH/MM3 Monocytes # (Auto) 0.2 TH/MM3 Eosinophils # (Auto) 0.0 TH/MM3 Basophils # (Auto) 0.1 TH/MM3 CBC Comment DIFF FINAL Differential Comment D-Dimer Quantitative (PE/DVT) LESS THAN 0.19 MG/L FEU Blood Urea Nitrogen 11 MG/DL Creatinine 0.65 MG/DL Random Glucose 164 MG/DL Total Protein 7.7 GM/DL Albumin 3.7 GM/DL Calcium Level 8.7 MG/DL Alkaline Phosphatase 170 U/L Aspartate Amino Transf (AST/SGOT) 12 U/L Alanine Aminotransferase (ALT/SGPT) 14 U/L Total Bilirubin 0.2 MG/DL Sodium Level 138 MEQ/L Potassium Level 3.5 MEQ/L Chloride Level 101 MEQ/L Carbon Dioxide Level 28.0 MEQ/L Anion Gap 9 MEQ/L Estimat Glomerular Filtration Rate 89 ML/MIN Total Creatine Kinase 31 U/L Troponin I LESS THAN 0.02 NG/ML B-Type Natriuretic Peptide 142 PG/ML MDM Medical Decision Making Medical Screen Exam Complete: Yes Emergency Medical Condition: Yes Differential Diagnosis CHF exacerbation, pneumonia, upper respiratory infection, uncontrolled A. fib Narrative Course Assessment and plan discussed with patient and at bedside. EKG reveals a atrial fibrillation, rate of 101. During her observation pulse improved from upper 80s to low 90s. D-dimer was negative. BNP was negative. Patient was satting well and resting comfortably. Of note patient did desaturate mildly while sleeping in bed. Discussed of obstructive sleep apnea and follow-up with her PCP to assess need for nighttime oxygen Diagnosis Primary Impression: Upper respiratory infection Qualified Codes: J06.9 - Acute upper respiratory infection, unspecified Patient Instructions: General Instructions Additional Instructions: Rest fluids and Tylenol. Follow-up with PCP. Return to emergency room with onset of any new symptoms. Med/Other Pt SpecificInfo: Prescription(s) given Scripts Prednisone (21) 10 mg tab Dose Pack (Prednisone (21) 10 mg tab Dose Pack) 10 Mg Pack 10 MG PO DIRECTED for Inflammation, #1 DSPK 0 Refills Prov: Sebastien Lawler MD 12/28/16 Azithromycin (Zithromax) 500 Mg Tab 500 MG PO DAILY for Infection, #7 TAB 0 Refills Prov: Sebastien Lawler MD 12/28/16 Disposition: 01 DISCHARGE HOME Condition: Good Sebastien Lawler MD Dec 28, 2016 14:14
[2016-12-28] MEDS ORDERED: SODIUM CHLORIDE 0.9% FLUSH 10 ML FLUSH IVF PRN (14:15)
[2016-12-28] MEDS ORDERED: methylPREDNISolone SOD SUCC 125 MG/2 ML VIAL IV PUSH ONE (14:15)
[2016-12-28] MEDS ORDERED: AZITHROMYCIN INJ 500 MG in SODIUM CHLOR 0.9% 250 ML INJ 250 ML IV ONE (14:15)
[2016-12-28 14:21] VITALS: O2SAT 96
[2016-12-28] MEDS ORDERED: ONDANSETRON HCL 4 MG/2 ML VIAL IV PUSH ONE (14:30)
[2016-12-28 14:44] LABS: AUTOMATED NEUTROPHIL # 5.8 TH/MM3 (1.8-7.7); BASOPHIL # 0.1 TH/MM3 (0-0.2); EOSINOPHIL % 0.6 % (0.0-4.0); HEMATOCRIT 38.3 % (35.0-46.0); HEMO FLAGS DIFF FINAL; LYMPH % 13.6 % (9.0-44.0); LYMPHOCYTE # 0.9 TH/MM3 (1.0-4.8); MEAN CELL VOLUME 84.3 FL (80.0-100.0); MEAN CORPUSCULAR HEMOGLOBIN 27.1 PG (27.0-34.0); MEAN CORPUSCULAR HGB CONC 32.2 % (32.0-36.0); MONO % 3.3 % (0.0-8.0); NEUT % 81.5 % (16.0-70.0); PLATELET COUNT 195 TH/MM3 (150-450); RED BLOOD COUNT 4.54 MIL/MM3 (4.00-5.30); RED CELL DISTRIBUTION WIDTH 23.6 % (11.6-17.2)
[2016-12-28 14:49] LABS: CHLORIDE 101 MEQ/L (98-107); POTASSIUM 3.5 MEQ/L (3.5-5.1); SODIUM (NA) 138 MEQ/L (136-145)
[2016-12-28 14:53] LABS: ANION GAP 9 MEQ/L (5-15); BLOOD UREA NITROGEN 11 MG/DL (7-18)
[2016-12-28 14:56] LABS: ALT (GPT) 14 U/L (10-53); AST (GOT) 12 U/L (15-37); GLOMERULAR FILTRATION RATE 89 ML/MIN (>89)
[2016-12-28 14:57] LABS: TOTAL BILIRUBIN ADULT 0.2 MG/DL (0.2-1.0)
[2016-12-28 14:59] LABS: ALKALINE PHOSPHATASE 170 U/L (45-117)
[2016-12-28 15:05] LABS: CREATINE KINASE 31 U/L (26-192)
--- NOTE | 2016-12-28 15:43 | RADRPT ---
EXAM DATE/TIME: 12/28/2016 14:40 [facility] COMPARISON: CHEST SINGLE AP, July 31, 2014, 12:31. INDICATIONS : Chest pain with history of cardiac surgery. MEDICAL HISTORY : Hypertension. Neuropathy. Seizures. Migraine. Congestive heart failure. Atrial SURGICAL HISTORY : CABG. Tonsillectomy. Hysterectomy. Partial thyroidectomy. Brochoscopy. ENCOUNTER: Initial ACUITY: 1 day PAIN SCORE: 5/10 LOCATION: Bilateral upper chest FINDINGS: The cardiac silhouette is normal in transverse diameter. Median sternotomy wires are present. A prost hetic mitral valve is in place. There is prominence of the central pulmonary vasculature with indisti nct vascular margins compatible with vascular congestion but no evidence of overt failure. No pleural effusions are identified. CONCLUSION: 1. Cardiomegaly and findings of vascular congestion without overt failure. Eddie Smalls MD on December 28, 2016 at 15:41 Board Certified Radiologist. This report was verified electronically.
[2016-12-28] MEDS ORDERED: PRED10PA PO (15:54)
[2016-12-28] MEDS ORDERED: ZITH500T PO (15:54)
[2016-12-28 16:11] VITALS: BP 118/59; PULSE 88; RESP 20; O2SAT 95
[2016-12-29] MEDS ORDERED: CIPR-9 PO (07:01)
[2016-12-29] MEDS ORDERED: ZOFR8TAB PO (07:02)
--- NOTE | 2016-12-29 22:58 | EKG ---
Date Performed: 12/28/2016 Time Performed: 13:46:12 PTAGE: 76 years EKG: SINUS TACHYCARDIA ST DEVIATION AND MODERATE T-WAVE ABNORMALITY ABNORMAL ECG PREVIOUS TRACING : 09/06/2016 23.48 Compared to prior tracing no significant change DOCTOR: Carol Burris Interpretating Date/Time 12/29/2016 22:57:39
== END 2016-12-28 16:33 | disposition home or self-care (01) ==
LOC: PHED 13:43
DX: J06.9 Acute upper respiratory infection, unspecified (principal); R06.02 Shortness of breath; I48.91 Unspecified atrial fibrillation; Z79.01 Long term (current) use of anticoagulants; F41.9 Anxiety disorder, unspecified; E78.5 Hyperlipidemia, unspecified; I11.0 Hypertensive heart disease with heart failure; I50.9 Heart failure, unspecified; E11.9 Type 2 diabetes mellitus without complications; Z79.84 Long term (current) use of oral hypoglycemic drugs; G40.909 Epilepsy, unspecified, not intractable, without status epilepticus; Z79.899 Other long term (current) drug therapy
CPT/HCPCS: 71010; 80053; 82550; 83880; 84484; 85025; 85379; 93005; 96365; 96375; 99285; J0456; J2405; J2930; J7050

== ENCOUNTER 2016-12-29 04:36 | Emergency (ER) | payer MEDICARE ==
[~2016-12-29] VITALS: Ht 160 cm; Wt 80.2 kg
[~2016-12-29 04:36] MED LIST changes: +BETH25TA2 PO; +EXCETAB30; +PRED10PA PO; +ZITH500T PO
[2016-12-29 04:44] VITALS: BP 113/57; PULSE 105; RESP 18; TEMP 100.1; O2SAT 90
[2016-12-29 05:04] VITALS: O2SAT 91
--- NOTE | 2016-12-29 05:22 | PD ---
HPI Chief Complaint: GI Complaint Time Seen by Provider: 05:02 Travel History International Travel<30 days: No Contact w/Intl Traveler<30days: No Traveled to known affect area: No History of Present Illness HPI The patient is a 76-year-old female that presented yesterday with shortness of breath, cough and malaise over the last week. She does have a history of atrial fibrillation which is treated with warfarin and a beta piter. She does have a history of congestive heart failure. She denies any chest pain, nausea, vomiting or diarrhea. At that time she denied any fever, she comes in with a low-grade fever tonight. She comes in tonight because she is nauseated. She has also been vomiting. She denies any abdominal pain. Her cough is minimal. She was discharged with a viral upper respiratory infection. She was given Zithromax. She has not taken the Zithromax. The chest x-ray showed vascular congestion with an enlarged heart but no evidence of overt failure. The BNP was only 145. Dr. Lawler ordered a urine but the urine was never collected and ultimately canceled. PFSH Past Medical History Hx Anticoagulant Therapy: Yes Arthritis: Yes Asthma: No Atrial Fibrillation: Yes Autoimmune Disease: No Blood Disorders: No Anxiety: Yes Depression: No Heart Rhythm Problems: Yes (A-FIB) Cancer: No Cardiac Catheterization: No Cardiovascular Problems: Yes (Cardiomegaly, CHF, mitral repair, AF) High Cholesterol: Yes Chemotherapy: No Chest Pain: No Congestive Heart Failure: Yes COPD: No Cerebrovascular Accident: No Diabetes: Yes Patient Takes Glucophage: No Diminished Hearing: No Deep Vein Thrombosis: No Endocrine: Yes Gastrointestinal Disorders: Yes (RECTAL PROLAPSE REPAIR) GERD: No Glaucoma: No Genitourinary: Yes (CHRONIC UTI'S) Headaches: Yes Hepatitis: No Hiatal Hernia: No Heparin Induced Thrombocytopen: No Hypertension: Yes Immune Disorder: No Implanted Vascular Access Dvce: Yes Kidney Stones: Yes Medical other: No Musculoskeletal: Yes (ARTHRITIS, CHR. BACK PAIN ; OSTEOPORSIS) Neurologic: Yes (CHRONIC RT FOOT NEUROPATHY, MIGRANES, HX SEIZURES) Psychiatric: No Reproductive: No Respiratory: No Migraines: Yes Myocardial Infarction: No Radiation Therapy: No Renal Failure: No Seizures: Yes (started in teenage years last seizure was in 1965) Sickle Cell Disease: No Sleep Apnea: No Thyroid Disease: Yes (PARTIAL THYROID REMOVED FOR CYSTS IN 1952) Ulcer: No Tetanus Vaccination: > 5 Years Influenza Vaccination: Yes ?: Not Menopausal: Yes : 5 Para: 3 Miscarriage: 2 : 0 Past Surgical History Abdominal Aneurysm Repair: No Abdominal Surgery: No AICD: No Appendectomy: No Arteriovenous Shunt: No Body Medical Devices: PLATE LEFT WRIST; HEART VALVE RING Cardiac Surgery: Yes (MITRAL VALVE REPAIR 2003) Cholecystectomy: No Coronary Artery Bypass Graft: No Ear Surgery: No Endocrine Surgery: Yes (PARTIAL THYROIDECTOMY 1957) Eye Surgery: No Genitourinary Surgery: Yes (BLADDER SUSP. 2011) Gynecologic Surgery: Yes (HYSTERECTOMY ) Hysterectomy: Yes Insulin Pump: No Joint Replacement: Yes (right knee) Neurologic Surgery: No Oral Surgery: Yes (TONSILLECTOMY 1945 ; 07/28 BRONCHOSCOPY) Pacemaker: No Thoracic Surgery: No Tonsillectomy: Yes (1945) Valve Replacement: Yes (2003- MITRAL VALVE) Other Surgery: Yes (BILAT BUNION REMOVAL IN 1996) Family History Family Myocardial Infarction: Yes Social History Alcohol Use: No Tobacco Use: No Substance Use: No Allergies-Medications (Allergen,Severity, Reaction): Coded Allergies: acetaminophen (Unverified Allergy, Severe, Hallucinations, 12/29/16) iodine (Unverified Allergy, Severe, HIVES, 12/29/16) HIVES AFTER CARDIAC CATH AND EATING SHRIMP; NAUSEA meperidine (Unverified Allergy, Severe, NAUSEA AND DIZZY, 12/29/16) INTERMEDIATE REACTION oxycodone (Unverified Allergy, Severe, Hallucinations, 12/29/16) potassium iodide (Unverified Allergy, Severe, HIVES, 12/29/16) HIVES AFTER CARDIAC CATH AND EATING SHRIMP; NAUSEA povidone-iodine (Unverified Allergy, Severe, HIVES, 12/29/16) HIVES AFTER CARDIAC CATH AND EATING SHRIMP; NAUSEA sodium iodide (Unverified Allergy, Severe, HIVES, 12/29/16) HIVES AFTER CARDIAC CATH AND EATING SHRIMP; NAUSEA sodium iodide (Unverified Allergy, Severe, HIVES, 12/29/16) HIVES AFTER CARDIAC CATH AND EATING SHRIMP; NAUSEA Fish Containing Products (Unverified Allergy, Intermediate, HIVES; SLEEPY ; NAUSEA, 12/29/16) pregabalin (Unverified Adverse Reaction, Severe, SEVERE PANIC ATTACK, ) Reported Meds & Prescriptions Reported Meds & Active Scripts Active Prednisone (21) 10 mg tab Dose Pack (Prednisone) 10 Mg Pack 10 Mg PO DIRECTED Zithromax (Azithromycin) 500 Mg Tab 500 Mg PO DAILY Pantoprazole (Pantoprazole Sodium) 40 Mg Tab 40 Mg PO DAILY Reported Bethanechol 25 Mg Tab 12.5 Mg PO QID Excedrin Migraine Caplet (Aspirin/Acetaminophen/Caffeine) 250 Mg-250 Mg-65 Mg Tablet Dilantin (Phenytoin Extended) 100 Mg Cap 200 Mg PO HS Dilantin (Phenytoin Extended) 100 Mg Cap 100 Mg PO DAILY@0600 Preservision-Lutein (Multiple Vitamins W/ Minerals) 1 Cap 1 Cap PO DAILY Lortab (Hydrocodone-Acetaminophen) 10-325 Mg Tab 1 Tab PO Q6H PRN Lorazepam 0.5 Mg Tab 0.5 Mg PO DAILY PRN Preservision-Lutein (Multiple Vitamins W/ Minerals) 1 Cap 1 Cap PO BID Zocor (Simvastatin) 40 Mg Tab 40 Mg PO HS Warfarin 2.5 Mg Tab 2.5 Mg PO take on Mon,Thu, Thu Warfarin 5 Mg Tab 5 Mg PO DIRECTED Sun,Tue, Thur,Sat, Sun Lopressor (Metoprolol Tartrate) 50 Mg Tab 25 Mg PO BID Phenobarbital 64.8 Mg Tab 64.8 Mg PO BID Review of Systems Except as stated in HPI: all other systems reviewed are Neg Physical Exam Narrative GENERAL: The patient is alert, oriented 3 in no respiratory distress. Her oximetry is 90% on room air and heart rate is 105 with atrial fibrillation rhythm and temperature is 100.1. The blood pressure is 113/57. SKIN: Focused skin assessment warm/dry. HEAD: Atraumatic. Normocephalic. EYES: Pupils equal and round. No scleral icterus. No injection or drainage. ENT: No nasal bleeding or discharge. Mucous membranes pink and moist. NECK: Trachea midline. No JVD. CARDIOVASCULAR: Regular rate and rhythm. No murmur appreciated. RESPIRATORY: No accessory muscle use. Clear to auscultation. Breath sounds equal bilaterally. GASTROINTESTINAL: Abdomen soft, non-tender, nondistended. Hepatic and splenic margins not palpable. MUSCULOSKELETAL: No obvious deformities. No clubbing. No cyanosis. No edema. NEUROLOGICAL: Awake and alert. No obvious cranial nerve deficits. Motor grossly within normal limits. Normal speech. PSYCHIATRIC: Appropriate mood and affect; insight and judgment normal. Data Data Last Documented VS Vital Signs Date Time Temp Pulse Resp B/P (MAP) Pulse Ox O2 Delivery O2 Flow Rate FiO2 12/29/16 05:04 91 12/29/16 04:44 100.1 105 18 113/57 (75) Orders Orders Complete Blood Count With Diff (12/29/16 05:23) Basic Metabolic Panel (Bmp) (12/29/16 05:23) Urinalysis - C+S If Indicated (12/29/16 05:23) Lactic Acid (12/29/16 05:23) Ondansetron Inj (Zofran Inj) (12/29/16 05:30) Urine Culture (12/29/16 05:40) Labs Laboratory Tests Test 12/29/16 05:07 12/29/16 05:40 12/29/16 05:51 Lactic Acid Level 1.5 mmol/L Urine Collection Type CLEAN CATCH Urine Color YELLOW Urine Turbidity CLEAR Urine pH 5.5 Urine Specific Branscomb 1.024 Urine Protein 30 mg/dL Urine Glucose (UA) NEG mg/dL Urine Ketones NEG mg/dL Urine Occult Blood LARGE Urine Nitrite POS Urine Bilirubin NEG Urine Leukocyte Esterase SMALL Urine RBC 15-19 /hpf Urine WBC 25-49 /hpf Urine Squamous Epithelial Cells 0-5 /hpf Urine Bacteria MANY /hpf Microscopic Urinalysis Comment CULTURE INDICATED White Blood Count 7.8 TH/MM3 Red Blood Count 4.20 MIL/MM3 Hemoglobin 11.3 GM/DL Hematocrit 35.0 % Mean Corpuscular Volume 83.4 FL Mean Corpuscular Hemoglobin 26.9 PG Mean Corpuscular Hemoglobin Concent 32.3 % Red Cell Distribution Width 24.1 % Platelet Count 170 TH/MM3 Mean Platelet Volume 9.1 FL Neutrophils (%) (Auto) 92.6 % Lymphocytes (%) (Auto) 2.6 % Monocytes (%) (Auto) 4.2 % Eosinophils (%) (Auto) 0.0 % Basophils (%) (Auto) 0.6 % Neutrophils # (Auto) 7.2 TH/MM3 Lymphocytes # (Auto) 0.2 TH/MM3 Monocytes # (Auto) 0.3 TH/MM3 Eosinophils # (Auto) 0.0 TH/MM3 Basophils # (Auto) 0.0 TH/MM3 CBC Comment DIFF FINAL Differential Comment Blood Urea Nitrogen 20 MG/DL Creatinine 0.92 MG/DL Random Glucose 183 MG/DL Calcium Level 8.9 MG/DL Sodium Level 139 MEQ/L Potassium Level 3.9 MEQ/L Chloride Level 104 MEQ/L Carbon Dioxide Level 27.0 MEQ/L Anion Gap 8 MEQ/L Estimat Glomerular Filtration Rate 59 ML/MIN MDM Medical Decision Making Medical Screen Exam Complete: Yes Emergency Medical Condition: Yes Medical Record Reviewed: Yes Interpretation(s) The CBC is normal except for hemoglobin of 11.3. The basic metabolic profile shows a BUN of 20, GFR 59 but is otherwise unremarkable. The lactic acid is 1.5 which is normal. The urinalysis shows protein of 30, large occult blood, positive nitrite, small leukocyte esterase with 15-19 red cells and 25-49 white cells and many bacteria and culture is indicated. Differential Diagnosis Urinary tract infection, viral infection, congestive heart failure, intractable nausea/vomiting Narrative Course The patient has a pyelonephritis. She has no symptoms of cystitis. The urine is very positive for an infection. Both of fever, nausea are likely from the pyelonephritis. She has done well with Cipro in the past and I will write that for. She also needs to drink plenty of liquids. Sepsis Criteria SIRS Criteria (2 or more): Heart rate over 90 Diagnosis Primary Impression: Pyelonephritis Additional Impression: Nausea & vomiting Additional Instructions: As we discussed, it is important to increase her liquid intake when you have a urinary tract infection. The Cipro is one tablet twice daily for 10 days. Also , Zofran is for nausea and the 8 mg tablets are taken 3 times daily. Do not take the prednisone or the Zithromax as they can react with other medications. Med/Other Pt SpecificInfo: Prescription(s) given Scripts Ondansetron (Zofran) 8 Mg Tab 8 MG PO TID for Nausea/Vomiting, #30 TAB 0 Refills Prov: Suleman Leal MD 12/29/16 Ciprofloxacin (Cipro) 500 Mg Tab 500 MG PO BID for Infection for 10 Days, #20 TAB 0 Refills Prov: Suleman Leal MD 12/29/16 Disposition: 01 DISCHARGE HOME Condition: Stable Suleman Leal MD Dec 29, 2016 05:22
[2016-12-29] MEDS ORDERED: ONDANSETRON HCL 4 MG/2 ML VIAL IV ONE (05:30)
[2016-12-29 06:09] LABS: POTASSIUM 3.9 MEQ/L (3.5-5.1)
[2016-12-29 06:16] LABS: BLOOD, URINE LARGE (NEG); GLUCOSE,URINE NEG (NEG); KETONE, URINE NEG (NEG); NITRITE,URINE POS (NEG); PH, URINE 5.5 (5.0-8.5)
[2016-12-29 06:19] LABS: METHOD OF COLLECTION CLEAN CATCH; URINE COLOR YELLOW (YELLW/STRAW)
[2016-12-29 06:21] LABS: BACTERIA, URINE MANY /hpf; COMMENT (UR) CULTURE INDICATED; CULTURE IF INDICATED CULTURE INDICATED; RBC, URINE 15-19 /hpf (0-3); SQUAMOUS EPITHELIAL CELL URINE 0-5 /hpf (0-5)
[2016-12-29 06:32] LABS: AUTOMATED NEUTROPHIL # 7.2 TH/MM3 (1.8-7.7); BASOPHIL % 0.6 % (0.0-2.0); HEMO FLAGS DIFF FINAL; LYMPH % 2.6 % (9.0-44.0); LYMPHOCYTE # 0.2 TH/MM3 (1.0-4.8); MEAN CELL VOLUME 83.4 FL (80.0-100.0); MEAN CORPUSCULAR HEMOGLOBIN 26.9 PG (27.0-34.0); MEAN CORPUSCULAR HGB CONC 32.3 % (32.0-36.0); MONO % 4.2 % (0.0-8.0); NEUT % 92.6 % (16.0-70.0); PLATELET COUNT 170 TH/MM3 (150-450); RED CELL DISTRIBUTION WIDTH 24.1 % (11.6-17.2); WHITE BLOOD COUNT 7.8 TH/MM3 (4.0-11.0)
[2016-12-29] MEDS ORDERED: CIPR-9 PO (07:01)
[2016-12-29] MEDS ORDERED: ZOFR8TAB PO (07:02)
[2016-12-29 07:15] VITALS: BP 116/66; PULSE 89; RESP 18; O2SAT 92
[2016-12-29] MEDS ORDERED: CIPROFLOXACIN 500 MG TAB PO ONE (07:15)
[2016-12-29] MEDS ORDERED: ONDANSETRON ODT 4 MG TAB PO ONE (07:15)
== END 2016-12-29 07:24 | disposition home or self-care (01) ==
LOC: PHED 04:36
DX: N12 Tubulo-interstitial nephritis, not specified as acute or chronic (principal); B96.1 Klebsiella pneumoniae [K. pneumoniae] as the cause of diseases classified elsewhere
CPT/HCPCS: 80048; 81001; 83605; 85025; 87077; 87086; 87186; 96374; 99284; J2405

== ENCOUNTER → 2017-01-14 | Outpatient (CLI) | payer MEDICARE, BC ==
[~2017-01-14] MED LIST changes: +CIPR-9 PO; -FURO1TAB60 PO; -POTA1TAB4 PO; +ZOFR8TAB PO
[2017-01-14 09:52] LABS: AUTOMATED NEUTROPHIL # 1.7 TH/MM3 (1.8-7.7); BASOPHIL % 1.2 % (0.0-2.0); EOSINOPHIL # 0.1 TH/MM3 (0-0.4); EOSINOPHIL % 1.8 % (0.0-4.0); HEMATOCRIT 39.5 % (35.0-46.0); HEMOGLOBIN 12.6 GM/DL (11.6-15.3); LYMPH % 30.7 % (9.0-44.0); MEAN CORPUSCULAR HEMOGLOBIN 27.5 PG (27.0-34.0); MEAN CORPUSCULAR HGB CONC 31.9 % (32.0-36.0); MEAN PLATELET VOLUME 8.4 FL (7.0-11.0); MONO % 12.5 % (0.0-8.0); MONOCYTE # 0.4 TH/MM3 (0-0.9); NEUT % 53.8 % (16.0-70.0); PLATELET COUNT 301 TH/MM3 (150-450); RED CELL DISTRIBUTION WIDTH 24.6 % (11.6-17.2); WHITE BLOOD COUNT 3.1 TH/MM3 (4.0-11.0)
[2017-01-14 10:10] LABS: ALBUMIN 3.8 GM/DL (3.4-5.0); ALT (GPT) 14 U/L (10-53); AST (GOT) 11 U/L (15-37); BICARBONATE 28.6 MEQ/L (21.0-32.0); BLOOD UREA NITROGEN 17 MG/DL (7-18); CALCIUM 9.4 MG/DL (8.5-10.1); CHLORIDE 103 MEQ/L (98-107); CREATININE 0.56 MG/DL (0.50-1.00); GLOMERULAR FILTRATION RATE 105 ML/MIN (>89); GLUCOSE,FASTING 110 MG/DL (74-99); SODIUM (NA) 139 MEQ/L (136-145)
[2017-01-14 10:11] LABS: CHOLESTEROL 234 MG/DL (120-200)
[2017-01-14 10:15] LABS: ALKALINE PHOSPHATASE 167 U/L (45-117); HDL CHOLESTEROL 83.5 MG/DL (40.0-60.0); LDL CHOLESTEROL 129 MG/DL (0-99); PHENYTOIN (DILANTIN) 17.1 MCG/ML (10.0-20.0); TOTAL BILIRUBIN ADULT 0.3 MG/DL (0.2-1.0); TOTAL PROTEIN 7.6 GM/DL (6.4-8.2); TRIGLYCERIDES 108 MG/DL (42-150)
[2017-01-14 16:32] LABS: HEMOGLOBIN A1C 6.3 % (4.3-6.0)
== END ==
LOC: CLAB 09:06
PROVIDERS: ATTEND Family Medicine
DX: I48.91 Unspecified atrial fibrillation (principal); I50.9 Heart failure, unspecified; E11.9 Type 2 diabetes mellitus without complications; E78.5 Hyperlipidemia, unspecified; I11.0 Hypertensive heart disease with heart failure; R56.9 Unspecified convulsions; D64.9 Anemia, unspecified
CPT/HCPCS: 36415; 80053; 80061; 80184; 80185; 83036; 85025

== ENCOUNTER → 2017-02-10 | Outpatient (CLI) | payer MEDICARE, BC ==
[~2017-02-10] MED LIST changes: -EXCETAB30; +EXCETAB31; -LORA-373 PO; +LORA0.5T PO
== END ==
LOC: CLAB 09:21
PROVIDERS: ATTEND Family Medicine
DX: R56.9 Unspecified convulsions (principal); Z79.899 Other long term (current) drug therapy
CPT/HCPCS: 36415; 80184

== ENCOUNTER → 2017-04-07 | Outpatient (CLI) | payer MEDICARE, BC ==
[2017-04-07 09:56] LABS: AUTOMATED NEUTROPHIL # 3.7 TH/MM3 (1.8-7.7); BASOPHIL % 0.7 % (0.0-2.0); EOSINOPHIL # 0.1 TH/MM3 (0-0.4); EOSINOPHIL % 1.4 % (0.0-4.0); HEMATOCRIT 38.5 % (35.0-46.0); HEMOGLOBIN 12.9 GM/DL (11.6-15.3); LYMPH % 16.8 % (9.0-44.0); LYMPHOCYTE # 0.9 TH/MM3 (1.0-4.8); MEAN CELL VOLUME 92.3 FL (80.0-100.0); MEAN CORPUSCULAR HEMOGLOBIN 30.9 PG (27.0-34.0); MEAN CORPUSCULAR HGB CONC 33.5 % (32.0-36.0); MEAN PLATELET VOLUME 8.8 FL (7.0-11.0); MONO % 11.6 % (0.0-8.0); MONOCYTE # 0.6 TH/MM3 (0-0.9); NEUT % 69.5 % (16.0-70.0); PLATELET COUNT 193 TH/MM3 (150-450); RED BLOOD COUNT 4.17 MIL/MM3 (4.00-5.30); RED CELL DISTRIBUTION WIDTH 15.9 % (11.6-17.2); WHITE BLOOD COUNT 5.3 TH/MM3 (4.0-11.0)
[2017-04-07 10:36] LABS: ALBUMIN 3.8 GM/DL (3.4-5.0); ALT (GPT) 14 U/L (10-53); AST (GOT) 14 U/L (15-37); BICARBONATE 30.6 MEQ/L (21.0-32.0); BLOOD UREA NITROGEN 21 MG/DL (7-18); CALCIUM 9.3 MG/DL (8.5-10.1); CHLORIDE 104 MEQ/L (98-107); CHOLESTEROL 202 MG/DL (120-200); CREATININE 0.66 MG/DL (0.50-1.00); GLOMERULAR FILTRATION RATE 87 ML/MIN (>89); GLUCOSE,FASTING 96 MG/DL (74-99); SODIUM (NA) 140 MEQ/L (136-145)
[2017-04-07 10:39] LABS: ALKALINE PHOSPHATASE 149 U/L (45-117); CHOLESTEROL/ HDL RATIO 2.26 RATIO; HDL CHOLESTEROL 89.1 MG/DL (40.0-60.0); LDL CHOLESTEROL 95 MG/DL (0-99); PHENYTOIN (DILANTIN) 18.8 MCG/ML (10.0-20.0); TOTAL BILIRUBIN ADULT 0.3 MG/DL (0.2-1.0); TOTAL PROTEIN 7.1 GM/DL (6.4-8.2); TRIGLYCERIDES 92 MG/DL (42-150)
[2017-04-07 10:52] LABS: HEMOGLOBIN A1C 6.2 % (4.3-6.0)
== END ==
LOC: CLAB 09:22
PROVIDERS: ATTEND Family Medicine
DX: I48.91 Unspecified atrial fibrillation (principal); I50.9 Heart failure, unspecified; E11.9 Type 2 diabetes mellitus without complications; E78.5 Hyperlipidemia, unspecified; I11.0 Hypertensive heart disease with heart failure; R56.9 Unspecified convulsions; Z79.899 Other long term (current) drug therapy
CPT/HCPCS: 36415; 80053; 80061; 80184; 80185; 83036; 85025

== ENCOUNTER → 2017-07-30 | Outpatient (CLI) | DX: I48.91 Unspecified atrial fibrillation (principal); I50.9 Heart failure, unspecified; E11.9 Type 2 diabetes mellitus without complications; E78.5 Hyperlipidemia, unspecified; I11.0 Hypertensive heart disease with heart failure; R56.9 Unspecified convulsions; Z79.01 Long term (current) use of anticoagulants ==